=== PATIENT | male | born 1960 | race Caucasian/White ===

== ENCOUNTER 2020-01-11 14:31 | Outpatient (CLI) | payer OTHER, SELFPAY ==
--- NOTE | ~2020-01-11 | US_ITS ---
EXAMINATION: US abdomen complete, US soft tissue pelvic DATE: 01/11/2020 16:07 INDICATION: Abdominal pain. Abdominal hernia without obstruction or gangrene. TECHNIQUE: Multiple grayscale and Doppler ultrasound images of the abdomen and anterior wall of the r egion of concern at the pelvis were obtained. COMPARISON: None FINDINGS: Normal caliber abdominal aorta measuring 2.9 cm proximally and tapering to 2.0 cm the mid aorta and 1 .8 cm the distal aorta. The visualized proximal inferior vena cava is normal. The pancreatic head and body are normal in appearance. The pancreatic tail is not visualized. Liver has normal echogenicity and contour, with a smooth surface. No liver lesion identified. No intrahepatic biliary duct dilatio n suspected. Portal venous flow was seen in the hepatopetal, normal direction and has normal Doppler waveform. The gallbladder is normal in appearance. There is no cholelithiasis. The common bile duct measures 5 mm, which is normal. Sonographic Block sign was reported as negative by the natural resource officer. There is normal renal contour and echogenicity bilaterally. The right kidney measures 11.8 x 5.2 x 6. 8 cm and the left 12.2 x 6.0 x 5.6 cm. There are no focal renal lesions identified. There is no hyd ronephrosis. Mild nonspecific splenomegaly with spleen measuring 13.5 cm craniocaudal length which co uld be related to body habitus. No evident ventral hernia along the infraumbilical ventral wall of th e abdomen and pelvis. With Valsalva there is mild bulging of the fat near the entrances to the the bi lateral inguinal canals but without discrete herniation into the inguinal canals. IMPRESSION: 1. No evident ventral or inguinal hernias. 2. Mild splenomegaly which may be related to body habitus. Otherwise unremarkable abdominal ultrasoun d. Reviewed, dictated and finalized at location A. IMPRESSION: 1. No evident ventral or inguinal hernias. 2. Mild splenomegaly which may be related to body habitus. Otherwise unremarkab le abdominal ultrasound.
[2020-01-11 16:24] LABS: Basophils Percent Auto 0.5 % (0.2-1.2); Eosinophils Absolute Auto 0.3 K/mm3 (0-0.3); Eosinophils Percent Auto 4.9 % (0-4.4); Hematocrit 44.7 % (42.0-52.0); Hemoglobin 15.1 g/dL (14.0-18.0); Immature Granulocyte Absolute 0.01 K/mm3 (0.00-0.031); Immature Granulocyte Percent A 0.2 % (0-0.5); Lymphocytes Absolute Auto 2.01 K/mm3 (0.9-3.2); Lymphocytes Percent Auto 31.5 % (18.3-44.2); Mean Corpuscular HGB Conc 33.8 g/dl (32-36); Mean Corpuscular Hemoglobin 28.9 pg (26-34); Mean Corpuscular Volume 85.6 fl (80-100); Mean Platelet Volume 9.8 fl (7.4-10.4); Monocytes Absolute Auto 0.5 K/mm3 (0.1-0.6); Monocytes Percent Auto 7.4 % (2.6-8.5); Neutrophils Absolute Auto 3.6 K/mm3 (1.3-6.7); Neutrophils Percent Auto 55.5 % (45.5-73.1); Platelet Count Result 294 k/mm3 (150-375); Red Blood Count 5.22 M/mm3 (4.6-6.20); Red Cell Distribution Width 13.1 % (11.5-14.5); White Blood Count 6.4 K/mm3 (4.5-10.0)
[2020-01-11 16:36] LABS: Alanine Aminotransferase 29 U/L (4-50); Albumin Level 4.8 g/dL (3.5-5.1); Alkaline Phosphatase 40 U/L (38-126); Aspartate Amino Transferase 30 U/L (17-59); Bilirubin,Total 0.6 mg/dL (0.2-1.3); Blood Urea Nitrogen 18 mg/dL (9-20); Carbon Dioxide 27 mmol/L (22-30); Chloride 105 mmol/L (98-107); Cholesterol 165 mg/dL (0-200); Estimated Glomerular Filt Rate > 60; Glucose 84 mg/dL (75-110); HDL Direct 39 mg/dL; Potassium 4.3 mmol/L (3.4-5.0); Sodium 141 mmol/L (137-145); Triglycerides 173 mg/dL (<150)
[2020-01-11 16:49] LABS: LDL Cholesterol Direct 107 mg/dL
[2020-01-11 17:06] LABS: Prostate Specific Antigen 1.2 ng/mL (< OR = 4.0)
[2020-01-11 17:22] LABS: Free T4 Free Thyroxine 0.92 ng/mL (0.78-2.19)
== END 2020-01-11 14:32 | disposition home or self-care (01) ==
LOC: ANHIMG 14:33
PROVIDERS: PCP Family Medicine; Visit Provider Family Medicine
DX: Z00.00 Encounter for general adult medical examination without abnormal findings (principal); K46.9 Unspecified abdominal hernia without obstruction or gangrene; R10.9 Unspecified abdominal pain; Z79.899 Other long term (current) drug therapy; I10 Essential (primary) hypertension; E78.5 Hyperlipidemia, unspecified; Z86.010 Personal history of colon polyps; R16.1 Splenomegaly, not elsewhere classified
CPT/HCPCS: 36415; 76700; 76857; 80053; 80061; 84153; 84439; 84443; 85025; G0103

== ENCOUNTER → 2020-11-17 12:15 | Outpatient (CLI) | payer OTHER, SELFPAY ==
--- NOTE | ~2020-11-17 | XR_ITS ---
EXAMINATION: XR lumbar spine 2-3V DATE: 11/17/2020 12:34 INDICATION: Low back pain TECHNIQUE: Anteroposterior and lateral views of the lumbar spine, and cone-down lateral view of the l umbosacral junction were obtained. COMPARISON: None. FINDINGS: There are 3 mm of anterolisthesis of L4 on L5 and 2 mm of retrolisthesis of L5 on S1. There is severe loss of intervertebral disc space height at L5-S1. The vertebral body heights are maintain ed. There is no fracture. Small degenerative osteophytes project from the anterior endplates of multi ple vertebral bodies. The bowel gas pattern is normal. Punctate calcifications of the left upper quad rant likely reflect old granulomatous disease of the spleen. IMPRESSION: 1. Moderate lumbar spondylosis without acute findings. Reviewed, dictated and finalized at location B.
== END ==
PROVIDERS: PCP Family Medicine; Visit Provider Physician Assistant
DX: M54.5 Low back pain (principal); M47.816 Spondylosis without myelopathy or radiculopathy, lumbar region
CPT/HCPCS: 72100

== ENCOUNTER → 2021-01-26 13:12 | Outpatient (CLI) | payer OTHER, SELFPAY ==
--- NOTE | ~2021-01-26 | MR_ITS ---
EXAMINATION: MR lumbar spine wo con DATE: 01/26/2021 13:51 INDICATION: Lumbar radiculopathy. TECHNIQUE: Magnetic resonance imaging (MRI) of the lumbar spine was performed without intravenous con trast. Sequences included sagittal T2-weighted FSE, sagittal T2-weighted FS FSE, sagittal T1-weighted FSE, and axial T2-weighted FSE. COMPARISON: Lumbar spine radiographs 11/17/2020 FINDINGS: There is 3 mm retrolisthesis of L3 on L4, 3 mm anterolisthesis of L4 on L5, and 3 mm retrol isthesis of L5 on S1. Vertebral body heights are normal. There is mildly decreased disc height at L3- L4 and moderately decreased disc height at L5-S1. The distal spinal cord signal intensity is normal. The conus medullaris is at T12-L1. The following disc levels are specifically discussed: L1-L2: The disc does not extend beyond the endplate margin. There is mild bilateral facet joint osteo arthritis. There is no neural foraminal stenosis. There is no central canal stenosis. L2-L3: The disc does not extend beyond the endplate margin. There is severe bilateral facet joint ost eoarthritis. There is no neural foraminal stenosis. There is no central canal stenosis. L3-L4: The disc is bulging and has an annular fissure. There is severe bilateral facet joint osteoart hritis. There is moderate bilateral neural foraminal stenosis. There is mild central canal stenosis. L4-L5: The disc is bulging and has an annular fissure. There is severe bilateral facet joint osteoart hritis. There is moderate bilateral neural foraminal stenosis. There is moderate central canal stenos is. L5-S1: The disc is bulging and has an annular fissure. There is severe bilateral facet joint osteoart hritis. There is moderate bilateral neural foraminal stenosis. There is mild central canal stenosis. IMPRESSION: 1. Moderate lumbar spondylosis. Reviewed, dictated and finalized at location A.
== END ==
PROVIDERS: PCP Family Medicine; Visit Provider Physician Assistant
DX: M54.16 Radiculopathy, lumbar region (principal); M47.816 Spondylosis without myelopathy or radiculopathy, lumbar region
CPT/HCPCS: 72148

== ENCOUNTER → 2021-03-06 09:13 | Outpatient (CLI) | payer OTHER, SELFPAY ==
[2021-03-06 18:52] LABS: SARS-CoV-2 RNA PCR Negative
== END ==
PROVIDERS: PCP Family Medicine; Visit Provider Physician Assistant
DX: Z20.822 Contact with and (suspected) exposure to COVID-19 (principal)
CPT/HCPCS: C9803; U0003; U0005

== ENCOUNTER → 2021-03-06 09:51 | Outpatient (CLI) | payer OTHER, SELFPAY ==
--- NOTE | ~2021-03-06 | XR_ITS ---
EXAMINATION: XR chest 2V 03/06/2021 10:02 INDICATION: Chest pain PROCEDURE: 2 view chest COMPARISON: 10/27/2015 FINDINGS: The lungs are clear. The cardiomediastinal silhouette is within normal limits. There are no pleural effusions. There is no pneumothorax suspected. IMPRESSION: 1: NO ACUTE CARDIOPULMONARY DISEASE. Reviewed, dictated and finalized at location A.
== END ==
PROVIDERS: PCP Family Medicine; Visit Provider Physician Assistant
DX: R07.89 Other chest pain (principal)
CPT/HCPCS: 71046

== ENCOUNTER 2021-05-05 08:17 | Outpatient (CLI) | payer OTHER, SELFPAY ==
--- NOTE | 2021-05-05 08:39 | EST_ITS ---
Patient Info Name: Cornelius Payne Age: 60 years : 1960 Gender: Male Ht: 71 in Wt: 238 lbs BSA: 2.36 m2 Exam Date: 05/05/2021 9:13 AM Exam Location: [facility] Patient Status: Outpatient Admit Date: 05/05/2021 Staff Ordering Physician: Devonte Nguyen PA-C Roll Forger: Matt Block RDCS, RT Attending Provider: DR. MANRIQUEZ Referring Physician: Patrick MARTINEZ; Exam Type: CA stress echo Study Info Indications R07.9 - Chest pain, unspecified Treadmill exercise stress echocardiogram is performed. Summary 1. 1. Negative Lee exercise stress test for ischemic ST changes by ECG criteria. 2. 2. Good functional capacity, achieving 10 METS of workload. 3. 3. Baseline hypertension with hypertensive response to exercise. 4. 4. Appropriate HR response to exercise. 5. 5. Appropriate HR recovery at 1 minute post exercise. 6. 6. Negative stress echocardiogram for ischemia by wall motion analysis. 7. 7. Patient informed of the above results. Stress Echo Findings Left Ventricle Appropriate increase in LV endocardial thickening with systole. Appropriate augmentation of contractility with systole. No wall motion abnormality. Left Ventricle Normal LV systolic function, no wall motion abnormality. Protocol: Lee Stress ECG Details Stage: REST Duration (min): 1 min : 8 sec Speed (mph): 0.0 Grade (%): 0 HR (bpm): 72 SBP (mmHg): 147 DBP (mmHg): 89 METS: --- Stage: REST Duration (min): 21 min : 44 sec Speed (mph): 0.0 Grade (%): 0 HR (bpm): 71 SBP (mmHg): 147 DBP (mmHg): 89 METS: --- Stage: STAGE 1 Duration (min): 1 min : 0 sec Speed (mph): 1.7 Grade (%): 10 HR (bpm): 89 SBP (mmHg): 147 DBP (mmHg): 89 METS: --- Stage: STAGE 1 Duration (min): 2 min : 0 sec Speed (mph): 1.7 Grade (%): 10 HR (bpm): 100 SBP (mmHg): 147 DBP (mmHg): 89 METS: --- Stage: STAGE 1 Duration (min): 3 min : 0 sec Speed (mph): 1.7 Grade (%): 10 HR (bpm): 102 SBP (mmHg): 176 DBP (mmHg): 74 METS: --- Stage: STAGE 2 Duration (min): 1 min : 0 sec Speed (mph): 2.5 Grade (%): 12 HR (bpm): 111 SBP (mmHg): 176 DBP (mmHg): 74 METS: --- Stage: STAGE 2 Duration (min): 2 min : 0 sec Speed (mph): 2.5 Grade (%): 12 HR (bpm): 115 SBP (mmHg): 180 DBP (mmHg): 78 METS: --- Stage: STAGE 2 Duration (min): 3 min : 0 sec Speed (mph): 2.5 Grade (%): 12 HR (bpm): 114 SBP (mmHg): 180 DBP (mmHg): 78 METS: --- Stage: STAGE 3 Duration (min): 1 min : 0 sec Speed (mph): 3.4 Grade (%): 14 HR (bpm): 128 SBP (mmHg): 171 DBP (mmHg): 85 METS: --- Stage: STAGE 3 Duration (min): 2 min : 0 sec Speed (mph): 3.4 Grade (%): 14 HR (bpm): 136 SBP (mmHg): 171 DBP (mmHg): 85 METS: --- Stage: STAGE 3 Duration (min): 3 min : 0 sec Speed (mph): 3.4 Grade (%): 14 HR (bpm): 130 SBP (m
== END 2021-05-05 08:18 | disposition home or self-care (01) ==
PROVIDERS: PCP Family Medicine; Visit Provider Physician Assistant
DX: R07.89 Other chest pain (principal)
CPT/HCPCS: 93351

== ENCOUNTER → 2022-05-11 10:56 | Outpatient (CLI) | payer OTHER, SELFPAY ==
--- NOTE | ~2022-05-11 | XR_ITS ---
XR knee RT min 4V 05/11/2022 11:18 INDICATION: Right knee pain PROCEDURE: 5 views right knee COMPARISON: No prior studies for comparison. FINDINGS: Fracture, dislocation or subluxation is not identified. No joint effusion. The soft tissues appear within normal limits. No foreign bodies are identified. IMPRESSION: 1: No significant bone or joint abnormality.. Reviewed, dictated and finalized at location A.
== END ==
PROVIDERS: PCP Emergency Medicine; Visit Provider Emergency Medicine
DX: M25.561 Pain in right knee (principal)
CPT/HCPCS: 73564

== ENCOUNTER 2022-05-20 07:39 | Outpatient (CLI) | payer OTHER, SELFPAY ==
--- NOTE | 2022-06-07 10:02 | WPDSLEEPSTUD ---
Sleep Study Date of Study: 05/20/22 Ordering Provider: Mike Early MD Interpreting Physician: Conchita Mcleod MD Sleep Study Type: Split Polysomnogram Height: 1.8 m Weight: 115.666 kg Body Mass Index: 35.5 Neck Circumference (inches): 17.5 [place]: 8 Reason for Sleep Study Known obstructive sleep apnea, needs re-evaluation, has been treated for over 10 years. * [facility] Mild obstructive sleep apnea, AHI was 10 with desaturations and heavy snoring with severe myoclonus. He developed treatment emergent central apneas during the titration. His optimal pressure on that study was 8 cm. 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 He snores loudly, has a history of sleep apnea and restless legs syndrome. He has been snoring recently even using CPAP. He has snored since he was a child. In regards to sleep apnea his last sleep study was over 10 years ago. He has been using the same CPAP machine. His restless legs syndrome began around the age of 22 and is increased in frequency and intensity over the years. Sometimes, these symptoms occur during the day. If he does not use CPAP he awakens feeling short of breath frequently. He rarely awakens at night with heartburn, belching or coughing. His snoring is always loud without CPAP but with that he still snores some. He frequently has trouble sleeping with a cold. He occasionally wakes up gasping for breath without CPAP. He constantly has breathing problems at night if he does not uses CPAP. He rarely sweats excessively at night. He does not notice his heart pounding or beating irregularly at night. He frequently falls asleep during the day. He does not fall asleep involuntarily or while driving. He does not have loss of muscle tone with strong emotion. He does not have daytime difficulties due to excessive sleepiness PE. He does not feel paralyzed on waking or falling asleep. He occasionally has vivid dreamlike scenes on waking or falling asleep. He rarely has nightmares. He occasionally remembers his dreams. He occasionally has racing thoughts. He constantly feels sad or depressed. He occasionally has anxiety. He does not have muscular tension. He constantly notices parts of his body jerking, he constantly kicks at night he constantly has crawling aching feelings in his legs. He does not have leg pain at night. He occasionally has morning jaw pain. He does not grind his teeth during sleep. He occasionally is bothered by pain during the day , occasionally awakened by pain at night. He frequently wakes up feeling stiff in the morning with sore achy muscles and pain in the neck and spine. Normal bedtime is 10:00 p.m. falling asleep within 20-30 minutes and less his RLS is worsening. He typically wakes 1-2 times at night to urinate and is able to return to sleep and 15 minutes. He wakes the morning at 6:00 a.m.. He usually gets 7 hours of sleep at night. He is currently recovering from back surgery so he is sleeping longer. He sometimes takes naps in the afternoon or evening. A short nap is not refreshing. He is drowsy in the morning for an hour or longer. He feels better in the afternoon compared to other times of day. Habits: Quit tobacco over 12 years ago. Caffeine for servings a day. No alcohol or recreational drugs. [facility] Past Medical History Medical History Cleft lip Surgical History Surgical History H/O colonoscopy (~06/2019) Hx of tonsillectomy Family History Family History Mother Family history of glaucoma Depression Family history of Parkinson's disease Father Hypertension Malignant neoplasm of prostate Family history of cardiovascular
[2022-06-07 10:13] VITALS: BMI 35.5
== END 2022-05-21 06:44 | disposition home or self-care (01) ==
PROVIDERS: PCP Emergency Medicine; Visit Provider Emergency Medicine
DX: G47.33 Obstructive sleep apnea (adult) (pediatric) (principal); G25.81 Restless legs syndrome; Z68.35 Body mass index [BMI] 35.0-35.9, adult
CPT/HCPCS: 95811

== ENCOUNTER 2022-07-07 01:02 | Day surgery (SDC) | payer OTHER, SELFPAY ==
[2022-06-21 14:11] VITALS: BMI 34.9
--- NOTE | 2022-07-06 09:29 | PM.HPGS ---
History of Present Illness History of Present Illness Consent: Risks, benefits, and alternatives have been discussed and questions answered. Patient agrees to proceed with procedure. Chief complaint: hx of colon polyps Narrative: Cornelius Payne is a 61 year old male referred for colon cancer screening. He has a history of polyps removed in 2012 and again 3 years ago he had removal of multiple polyps, 3 of which were tubular adenomas. Review of Systems Review of Systems: All systems reviewed & are unremarkable except as noted in HPI and below PMFSH Past Medical History Medical History Anxiety Anxiety disorder, unspecified Cleft lip Essential (primary) hypertension Major depressive disorder, single episode, unspecified Mixed hyperlipidemia Obesity (BMI 30-39.9) Obstructive sleep apnea (adult) (pediatric) Surgical History Surgical History H/O colonoscopy (~06/2019) Hx of tonsillectomy Family History Family History Mother Family history of glaucoma Depression Family history of Parkinson's disease Father Hypertension Malignant neoplasm of prostate Family history of cardiovascular disease Other Cerebrovascular accident Diabetes mellitus Social History Social History Smoking status: Former smoker Tobacco type: cigarettes Alcohol intake: never Substance use type: does not use Living arrangements: with family Spiritual care concerns: No Meds Home Medications and Allergies Home Medications Medication Instructions Recorded Confirmed Type travoprost 0.004 % eye drops 1 drop ophthalmic (eye) QPM 12/28/19 07/07/22 History syringe with needle, safety 3 mL #100 ea 12/24/20 07/07/22 Rx 23 gauge x 1 (BD Integra Syringe) alprazolam 0.5 mg tablet 0.5 mg PO .QHS PRN sleep #30 tabs 06/15/21 07/07/22 Rx cholecalciferol (vitamin D3) 1,250 1,250 mcg PO WEEKLY #14 caps 12/09/21 07/07/22 Rx mcg (50,000 unit) capsule vilazodone 40 mg tablet (Viibryd) 40 mg PO DAILY #90 tabs 01/26/22 07/07/22 Rx testosterone cypionate 200 mg/mL 200 mg IM .EVERY 2 WEEKS #10 mL 02/01/22 07/07/22 Rx intramuscular oil (Depo-Testosterone) trazodone 50 mg tablet See Rx Instructions .Route 02/25/22 07/07/22 Rx .COMPLEX #90 tabs bupropion HCl 150 mg 24 hr tablet, 450 mg PO QAM #270 tabs 05/07/22 07/07/22 Rx extended release (Wellbutrin XL) metformin 500 mg tablet,extended See Rx Instructions .Route 05/07/22 07/07/22 Rx release 24 hr .COMPLEX #360 tabs atorvastatin 40 mg tablet See Rx Instructions .Route 05/25/22 07/07/22 Rx .COMPLEX #90 tabs fenofibrate 160 mg tablet See Rx Instructions .Route 05/25/22 07/07/22 Rx .COMPLEX #90 tabs tramadol 50 mg tablet 50 mg PO .q 4-6 PRN pain #60 tabs 06/28/22 07/07/22 Rx Allergies Allergy/AdvReac Type Severity Reaction Status Date / Time No Known Allergies Allergy Verified 07/07/22 07:51 Exam Resp: Auscultation: clear to auscultation bilaterally Cardio: Rate: regular rate Rhythm: regular rhythm GI: GI Palp: Yes Soft to palpation and No Tenderness to palpation present (GI) Assessment and Plan Assessment and plan (1) Colon cancer screening: Code(s): Z12.11 - Encounter for screening for malignant neoplasm of colon Status: Acute Assessment and Plan: Colonoscopy with possible biopsy or polypectomy or cautery or injection of substances.
[2022-07-07 07:52] LABS: Glucose Point of Care 133 mg/dl (65-105)
[2022-07-07 07:53] VITALS: BP 149/91; PULSE 92; RESP 18; TEMP 36.6; O2SAT 97
[2022-07-07] MEDS: LACTATED RINGERS 1,000 ML 150 ML IV CONT (07:57)
--- NOTE | 2022-07-07 07:59 | WPDANESEPPF ---
Anes - Initial Pre Proc Eval Procedure: Operation Date: 07/07/22 09:00 Proposed Procedures p Screening Colonoscopy - Quique Pond MD Date/Time: 07/07/22 07:59 Surgeon: Quique Pond MD Pre Op Diagnosis: hx of colon polyps Patient Data Age: 61 Gender: M Height: 1.8 m Weight: 112.8 kg Last Vital Signs Temp 36.6 C 07/07/22 07:53 Pulse 92 07/07/22 07:53 Resp 18 07/07/22 07:53 BP 149/91 H 07/07/22 07:53 Pulse Ox 97 07/07/22 07:53 O2 Del Method Room Air 07/07/22 07:53 Allergies Allergy/AdvReac Type Severity Reaction Status Date / Time No Known Allergies Allergy Verified 07/07/22 07:51 Home Medications Medication Instructions Recorded Confirmed Type travoprost 0.004 % eye drops 1 drop ophthalmic (eye) QPM 12/28/19 07/07/22 History syringe with needle, safety 3 mL #100 ea 12/24/20 07/07/22 Rx 23 gauge x 1 (BD Integra Syringe) alprazolam 0.5 mg tablet 0.5 mg PO .QHS PRN sleep #30 tabs 06/15/21 07/07/22 Rx cholecalciferol (vitamin D3) 1,250 1,250 mcg PO WEEKLY #14 caps 12/09/21 07/07/22 Rx mcg (50,000 unit) capsule vilazodone 40 mg tablet (Viibryd) 40 mg PO DAILY #90 tabs 01/26/22 07/07/22 Rx testosterone cypionate 200 mg/mL 200 mg IM .EVERY 2 WEEKS #10 mL 02/01/22 07/07/22 Rx intramuscular oil (Depo-Testosterone) trazodone 50 mg tablet See Rx Instructions .Route 02/25/22 07/07/22 Rx .COMPLEX #90 tabs bupropion HCl 150 mg 24 hr tablet, 450 mg PO QAM #270 tabs 05/07/22 07/07/22 Rx extended release (Wellbutrin XL) metformin 500 mg tablet,extended See Rx Instructions .Route 05/07/22 07/07/22 Rx release 24 hr .COMPLEX #360 tabs atorvastatin 40 mg tablet See Rx Instructions .Route 05/25/22 07/07/22 Rx .COMPLEX #90 tabs fenofibrate 160 mg tablet See Rx Instructions .Route 05/25/22 07/07/22 Rx .COMPLEX #90 tabs tramadol 50 mg tablet 50 mg PO .q 4-6 PRN pain #60 tabs 06/28/22 07/07/22 Rx Laboratory Tests 07/07/22 07:49 POC Capillary Glucose 133 mg/dl H mg/dl (65-105) Patient hx anesthesia problems: none Family hx anesthesia problems: none Results Review: All pre-operative results and documents have been reviewed as part of the pre-operative evaluation. [facility] Past Medical History Medical History (Updated 07/07/22 @ 08:06 by Fredreick Ramon MD) Anxiety Anxiety disorder, unspecified Cleft lip Essential (primary) hypertension Major depressive disorder, single episode, unspecified Mixed hyperlipidemia Obesity (BMI 30-39.9) Obstructive sleep apnea (adult) (pediatric) Surgical History Surgical History H/O colonoscopy (~06/2019) Hx of tonsillectomy Family History Family History Mother Family history of glaucoma Depression Family history of Parkinson's disease Father Hypertension Malignant neoplasm of prostate Family history of cardiovascular disease Other Cerebrovascular accident Diabetes mellitus Social History Social History Smoking status: Former smoker Tobacco type: cigarettes Alcohol intake: never Substance use type: does not use Living arrangements: with family Spiritual care concerns: No Anes - Eval Final PreProcedure Day of Procedure 07/07/22 07:59 Patient weight: obese Heart: regular rate and rhythm Lungs: clear to auscultation and normal air movement Airway: Mallampati scale class II Neurological: alert and oriented Last oral intake: >/= 8 hours ASA classification: III Emergent: no Anesthetic plan: proceed Anesthesia type and monitoring: general GIVS Results Review: All pre-operative results and documents have been reviewed as part of the pre-operative evaluation. Informed Consent: The patient's anesthetic plan and its attendant risks and benefits were discussed with the patient/family/POA. Questions were
[2022-07-07] MEDS: SIMETHICONE ORAL SUSPENSION 20 MG/0.3 ML 30 ML BOTTLE 0.6 ML IRRIGATION (09:25)
[2022-07-07 09:29] VITALS: BP 113/78; PULSE 91; RESP 22; O2SAT 96
[2022-07-07 09:39] VITALS: BP 129/90; PULSE 88; RESP 22; O2SAT 97
[2022-07-07 09:49] VITALS: BP 134/88; PULSE 85; RESP 23; O2SAT 98
== END 2022-07-07 09:56 | disposition home or self-care (01) ==
PROVIDERS: PCP Emergency Medicine; Visit Provider Internal Medicine Gastroenterology
PROC: 0DJD8ZZ Inspection of Lower Intestinal Tract, Via Natural or Artificial Opening Endoscopic (ICD-10-PCS; CPT 45378; principal; 2022-07-07 09:00)
DX: Z12.11 Encounter for screening for malignant neoplasm of colon (principal); K57.30 Diverticulosis of large intestine without perforation or abscess without bleeding; D12.2 Benign neoplasm of ascending colon; I10 Essential (primary) hypertension; E78.2 Mixed hyperlipidemia; F32.A Depression, unspecified; G47.33 Obstructive sleep apnea (adult) (pediatric); F41.9 Anxiety disorder, unspecified; E66.9 Obesity, unspecified; Z68.34 Body mass index [BMI] 34.0-34.9, adult; Z87.891 Personal history of nicotine dependence; Z79.84 Long term (current) use of oral hypoglycemic drugs; Z79.890 Hormone replacement therapy
CPT/HCPCS: 45385; 82948; 88305; J2704; J7120

== ENCOUNTER 2023-07-08 10:15 | Emergency (ER) | payer OTHER, SELFPAY ==
--- NOTE | ~2023-07-08 | CT_ITS ---
EXAMINATION: CT abdomen pelvis w con DATE: 07/08/2023 13:08 INDICATION: Abdominal pain. TECHNIQUE: Computed tomography (CT) of the abdomen and pelvis was performed with 100 mL Omnipaque 350 intravenous contrast. Automated exposure control and iterative reconstruction technique were employe d. The dose-length product was 1224.22 mGy-cm. COMPARISON: None. FINDINGS: The visualized portions of the lung bases demonstrate mild atelectasis. Calcified right maura g nodules are consistent with old granulomatous disease. No pleural effusion. The heart size is seble l. No pericardial effusion. There is a 4 mm cyst in the liver. Calcifications in the spleen are consi stent with old granulomatous disease. There is cystic thickening of the wall of the fundus of the gal lbladder, consistent with adenomyomatosis. The pancreas and right adrenal gland are normal. There is a 5 mm mass of fat in left adrenal gland, consistent with a myelolipoma. There is a 6 mm cyst in righ t kidney. Left kidney is normal. There are no dilated loops of bowel. There are scattered diverticula in the colon. There is fat stranding adjacent to a diverticulum of sigmoid colon, consistent with di verticulitis. The appendix is normal. There are no pathologically enlarged lymph nodes. There is no f ree intraperitoneal fluid. The prostate is mildly enlarged. There are changes of anterior fusion proc edure at L5-S1 and posterior fusion procedure from L4 to S1. There is moderate lumbar spondylosis. IMPRESSION: 1. Sigmoid diverticulitis. No perforation or abscess. Reviewed, dictated and finalized at location A. IN REPAIRER
[2023-07-08 10:36] VITALS: BP 161/90; PULSE 78; RESP 16; TEMP 36.6; O2SAT 98
--- NOTE | 2023-07-08 12:33 | ECG_ITS ---
Measurements Intervals [place] Rate: 62 P: 57 [place]: 165 QRS: 30 QRSD: 103 T: 51 QT: 393 QTc: 401 Interpretive Statements SINUS RHYTHM NORMAL ELECTROCARDIOGRAM NO PREVIOUS ECG AVAILABLE FOR COMPARISON Electronically Signed On 07-08-2023 13:41:36 CONTRACT PREPARER by Mauri Akhtar M.D.
--- NOTE | 2023-07-08 12:34 | ED.ABDPAIN ---
HPI - Abdominal Pain General Chief Complaint: Abdominal Pain Stated Complaint: abdominal pain Time Seen by Provider: 07/08/23 12:18 Source: patient Mode of arrival: ambulatory Limitations: no limitations History of Present Illness HPI narrative: This is a 62-year-old male that presents to the emergency department for abdominal pain. Ongoing over the last week. He has not been taking anything for his symptoms. Denies any associated symptoms. Reports his pain is in epigastric region and the left lower abdomen. Denies fevers, vomiting, diarrhea, dysuria, or hematuria. Related Data Home Medications Medication Instructions Recorded Confirmed travoprost 0.004 % eye drops 1 drop ophthalmic (eye) QPM 12/28/19 01/28/23 Allergies Allergy/AdvReac Type Severity Reaction Status Date / Time No Known Allergies Allergy Verified 07/08/23 12:31 Review of Systems Review of Systems: CONSTITUTIONAL: Denies fever GASTROINTESTINAL: Reports abdominal pain. Denies nausea, vomiting, or diarrhea. GENITOURINARY: Denies dysuria or hematuria. All systems reviewed & are unremarkable except as noted in HPI and below PMFSH Past Medical History Medical History (Updated 07/08/23 @ 13:46 by Bethany Raymond PA-C) Anxiety Anxiety disorder, unspecified Cleft lip Essential (primary) hypertension Major depressive disorder, single episode, unspecified Mixed hyperlipidemia Obesity (BMI 30-39.9) Obstructive sleep apnea (adult) (pediatric) Surgical History Surgical History H/O colonoscopy (~06/2019) Hx of tonsillectomy Family History Family History Mother Family history of glaucoma Depression Family history of Parkinson's disease Father Hypertension Malignant neoplasm of prostate Family history of cardiovascular disease Other Cerebrovascular accident Diabetes mellitus Social History Social History Smoking status: Former smoker Tobacco type: cigarettes Alcohol intake: never Substance use type: does not use Lack of Transportation: No Lack of Food: Never True Current Housing: I Have Housing Concerned About Future Housing: No Difficulty Paying Gas/Electric Bills: No Difficulty Paying for Meds: No Currently Unemployed: No Education: Master's Degree or Higher Difficulty w/ Childcare or Family Care: No Living arrangements: with family Spiritual care concerns: No Exam Narrative: GENERAL: Well-appearing, well-nourished, and in no acute distress. HEAD: Normocephalic, atraumatic. EYES: EOMI. CHEST: Clear to auscultation. No respiratory distress. No wheezes rales or rhonchi HEART: Regular rate and rhythm. No murmur heard. Normal peripheral pulses. ABDOMEN: Soft, nondistended, normal active bowel sounds. Tender to palpation through the left side of the abdomen, without guarding EXTREMITIES: Normal range of motion. No edema. SKIN: Warm, dry, no rash. NEURO: No focal deficits. Alert and oriented x3. PSYCH: Normal mood and affect Course Course Emergency Course: Patient updated on workup and agrees with plan of care Vital Signs Vital signs: Vital Signs Temperature 97.9 F 07/08/23 10:36 Pulse Rate 78 07/08/23 10:36 Respiratory Rate 16 07/08/23 10:36 Blood Pressure 161/90 H 07/08/23 10:36 Pulse Oximetry 98 07/08/23 10:36 Temperature 97.9 F 07/08/23 10:36 Pulse Rate 78 07/08/23 10:36 Respiratory Rate 16 07/08/23 10:36 Blood Pressure 161/90 H 07/08/23 10:36 Pulse Oximetry 98 07/08/23 10:36 MDM - Abdominal Pain MDM Narrative Medical decision making narrative: Patient presents to the ER for abdominal pain ongoing over the last week. He is afebrile and nontoxic appearing. CBC without leukocytosis. Metabolic panel without concerning findings. CT abdomen pelvis shows sigmoid di
[2023-07-08 12:48] LABS: Basophils Percent Auto 0.7 % (0.2-1.2); Eosinophils Absolute Auto 0.3 K/mm3 (0-0.3); Eosinophils Percent Auto 4.7 % (0-4.4); Hematocrit 45.9 % (42.0-52.0); Hemoglobin 14.4 g/dL (14.0-18.0); Immature Granulocyte Absolute 0.03 K/mm3 (0.00-0.031); Immature Granulocyte Percent A 0.5 % (0-0.5); Lymphocytes Absolute Auto 1.77 K/mm3 (0.9-3.2); Lymphocytes Percent Auto 32.2 % (18.3-44.2); Mean Corpuscular HGB Conc 31.4 g/dl (32-36); Mean Corpuscular Hemoglobin 27.7 pg (26-34); Mean Corpuscular Volume 88.3 fl (80-100); Mean Platelet Volume 9.8 fl (7.4-10.4); Monocytes Absolute Auto 0.5 K/mm3 (0.1-0.6); Monocytes Percent Auto 8.9 % (2.6-8.5); Neutrophils Absolute Auto 2.9 K/mm3 (1.3-6.7); Platelet Count Result 288 k/mm3 (150-375); Red Cell Distribution Width 13.7 % (11.5-14.5); White Blood Count 5.5 K/mm3 (4.5-10.0)
[2023-07-08 12:52] LABS: Appearance Urine Clear (Clear); Bilirubin Urine Negative (Negative); Blood Urine Negative (Negative); Color Urine Yellow (Yellow); Glucose Urine UA Negative (Negative); Ketones Urine Negative (Negative); Leukocyte Esterase Ur Negative LEU/UL (Negative); Nitrate Urine Negative (Negative); Protein Urine Negative (Negative); Specific Grav Ur 1.026 (1.001-1.035); Urobilinogen Urine 0.2 mg/dL (<2.0); pH Urine 5.5 (5.0-9.0)
[2023-07-08 12:54] LABS: Add Urine Microscopic? NO
[2023-07-08 12:56] LABS: Alanine Aminotransferase 24 U/L (6-50); Albumin Level 4.8 g/dL (3.5-5.1); Alkaline Phosphatase 58 U/L (38-126); Anion Gap 12 mmol/L (8-16); Aspartate Amino Transferase 27 U/L (17-59); Bilirubin,Total 0.5 mg/dL (0.2-1.3); Blood Urea Nitrogen 18 mg/dL (9-20); Calcium 9.7 mg/dL (8.4-10.2); Carbon Dioxide 25 mmol/L (22-30); Chloride 106 mmol/L (98-107); Estimated Glomerular Filt Rate > 60; Glucose 99 mg/dL (65-110); Lipase 172 U/L (23-300); Potassium 4.1 mmol/L (3.4-5.0); Sodium 143 mmol/L (137-145)
[2023-07-08] MEDS: PANTOPRAZOLE SODIUM IV 40 MG VIAL IV PUSH (13:16)
== END 2023-07-08 14:32 | disposition home or self-care (01) ==
PROVIDERS: Emergency Provider Physician Assistant; PCP Nurse Practitioner Family
DX: K57.32 Diverticulitis of large intestine without perforation or abscess without bleeding (principal); I10 Essential (primary) hypertension; E78.2 Mixed hyperlipidemia; G47.33 Obstructive sleep apnea (adult) (pediatric); E66.9 Obesity, unspecified; F41.9 Anxiety disorder, unspecified; F32.9 Major depressive disorder, single episode, unspecified; Z87.891 Personal history of nicotine dependence; Z79.84 Long term (current) use of oral hypoglycemic drugs
CPT/HCPCS: 36415; 74177; 80053; 81003; 83690; 85025; 93005; 96374; 99284; C9113; Q9967

== ENCOUNTER 2024-01-19 11:57 | Emergency (ER) | payer OTHER, SELFPAY ==
--- NOTE | ~2024-01-19 | XR_ITS ---
Clinical Indication: Chest pain PA and lateral views of the chest: Comparison: 03/06/2021 Findings: The lungs are clear, without evidence of focal consolidation or pleural effusion. Cardiome diastinal silhouette is within normal limits. Bones and soft tissues are unremarkable. Impression: Normal chest. Reviewed, dictated and finalized at location . Impression: Normal chest.
[2024-01-19 11:58] VITALS: BP 194/82; PULSE 72; RESP 18; TEMP 36.6; O2SAT 98
--- NOTE | 2024-01-19 11:59 | ECG_ITS ---
Test Date: 2024-01-19 12:05:29 Measurements Intervals [place] Rate: 70 P: 47 VT: 160 QRS: 14 QRSD: 98 T: 40 QT: 361 QTc: 389 Interpretive Statements SINUS RHYTHM No previous ECG available for comparison Electronically Signed On 01-19-2024 12:47:38 CDT by Stella Abad M.D.
[2024-01-19 12:10] LABS: Basophils Percent Auto 0.8 % (0.2-1.2); Eosinophils Absolute Auto 0.2 K/mm3 (0-0.3); Eosinophils Percent Auto 3.8 % (0-4.4); Hematocrit 45.3 % (42.0-52.0); Immature Granulocyte Absolute 0.02 K/mm3 (0.00-0.031); Immature Granulocyte Percent A 0.4 % (0-0.5); Lymphocytes Absolute Auto 1.13 K/mm3 (0.9-3.2); Lymphocytes Percent Auto 23.7 % (18.3-44.2); Mean Corpuscular HGB Conc 33.1 g/dl (32-36); Mean Corpuscular Hemoglobin 28.1 pg (26-34); Mean Corpuscular Volume 84.8 fl (80-100); Mean Platelet Volume 9.9 fl (7.4-10.4); Monocytes Absolute Auto 0.4 K/mm3 (0.1-0.6); Monocytes Percent Auto 7.4 % (2.6-8.5); Neutrophils Percent Auto 63.9 % (45.5-73.1); Platelet Count Result 246 k/mm3 (150-375); Red Blood Count 5.34 M/mm3 (4.6-6.20); Red Cell Distribution Width 14.9 % (11.5-14.5); White Blood Count 4.8 K/mm3 (4.5-10.0)
[2024-01-19 12:21] LABS: INR 0.9; Prothrombin Time 12.5 Seconds (11.1-14.7)
[2024-01-19 12:22] LABS: Partial Thromboplastin Time 28.4 Seconds (22.3-36.8)
[2024-01-19 12:27] LABS: Alanine Aminotransferase 34 U/L (6-50); Albumin Level 4.8 g/dL (3.5-5.1); Alkaline Phosphatase 55 U/L (38-126); Anion Gap 10 mmol/L (4-12); Aspartate Amino Transferase 31 U/L (17-59); Bilirubin,Total 0.7 mg/dL (0.2-1.3); Blood Urea Nitrogen 20 mg/dL (9-20); Carbon Dioxide 23 mmol/L (22-30); Chloride 108 mmol/L (98-107); Estimated CRCL calculation 65 ml/min; Estimated Glomerular Filt Rate > 60; Glucose 147 mg/dL (65-110); Lipase 330 U/L (23-300); Potassium 4.5 mmol/L (3.4-5.0); Sodium 141 mmol/L (137-145)
[2024-01-19 12:37] LABS: Troponin I < 0.012 ng/mL (0.000-0.034)
[2024-01-19 12:44] VITALS: PULSE 69
[2024-01-19 12:45] VITALS: O2SAT 97
--- NOTE | 2024-01-19 13:31 | ED.CHESTPAIN ---
HPI - Chest Pain General Chief Complaint: Chest Pain Stated Complaint: chest discomort Time Seen by Provider: 01/19/24 12:45 History of Present Illness HPI narrative: Patient is a 63-year-old male with history of hyperlipidemia, prediabetes here with chest pain. Patient states that over the last week he has had intermittent chest pain however today it seemed to be worse and associated with some lightheadedness which prompted him to come into the emergency department. He notes that it feels like a pressure / heaviness sensation over mid chest and left side of his chest. It does not radiate. He denies any associated nausea, vomiting, shortness of breath. He does note that he had some associated diaphoresis earlier today. He states that both the chest pain and lightheadedness are significantly improved at this time. He had his blood pressure checked at his job when his pain was severe and it was elevated, no prior history of hypertension. 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 His last stress test was approximately 2 years ago before back surgery. No prior history of cardiac catheterization. He does note a prior cardiac history in his father. He does not follow with a weathercaster. No cough, congestion, fever, chills. Related Data Home Medications Medication Instructions Recorded Confirmed travoprost 0.004 % eye drops 1 drop ophthalmic (eye) QPM 12/28/19 07/12/23 Allergies Allergy/AdvReac Type Severity Reaction Status Date / Time No Known Allergies Allergy Verified 07/12/23 14:59 Review of Systems Review of Systems: All systems reviewed & are unremarkable except as noted in HPI and below PMFSH Past Medical History Medical History (Updated 01/19/24 @ 16:50 by Angella Brizuela MD) Anxiety Anxiety disorder, unspecified Cleft lip Essential (primary) hypertension Major depressive disorder, single episode, unspecified Mixed hyperlipidemia Obesity (BMI 30-39.9) Obstructive sleep apnea (adult) (pediatric) Surgical History Surgical History (Updated 07/12/23 @ 15:05 by Henry Prather) H/O colonoscopy (~06/2019) History of eye surgery History of hernia surgery Hx of tonsillectomy S/P lumbar fusion Family History Family History Mother Family history of glaucoma Depression Family history of Parkinson's disease Father Hypertension Malignant neoplasm of prostate Family history of cardiovascular disease Other Cerebrovascular accident Diabetes mellitus Social History Social History Smoking status: Former smoker Tobacco type: cigarettes Alcohol intake: never Substance use type: does not use Lack of Transportation: No Lack of Food: Never True Current Housing: I Have Housing Concerned About Future Housing: No Difficulty Paying Gas/Electric Bills: No Difficulty Paying for Meds: No Currently Unemployed: No Education: Master's Degree or Higher Difficulty w/ Childcare or Family Care: No Living arrangements: with family Spiritual care concerns: No Exam Narrative: GENERAL: Well-appearing, well-nourished, and in no acute distress. HEAD: Normocephalic, atraumatic. EYES: PERRLA and EOMI. ENT: Nares clear. Mucous membranes moist. NECK: Supple. CHEST: Clear to auscultation. No respiratory distress. HEART: Regular rate and rhythm. Normal peripheral pulses. ABDOMEN: Soft, nontender, nondistended. EXTREMITIES: Normal range of motion. No edema. SKIN: Warm, dry, no rash. NEURO: No focal deficits. Alert and oriented x3. PSYCH: Normal mood and affect. Course Course Emergency Course: Chart review performed, patient here for intermittent chest tightness that began today. No cardiac history. Triage vitals show hypertension, otherwise within normal limit
[2024-01-19 13:36] VITALS: BP 170/93; PULSE 67; RESP 19; O2SAT 97
[2024-01-19 15:26] VITALS: BP 167/98; PULSE 70; RESP 18; O2SAT 97
[2024-01-19] MEDS: ACETAMINOPHEN 500 MG TABLET 1000 MG PO (15:30)
[2024-01-19 15:35] LABS: Troponin I < 0.012 ng/mL (0.000-0.034)
[2024-01-19 16:58] VITALS: BP 162/96; PULSE 73; RESP 20; O2SAT 97
== END 2024-01-19 17:00 | disposition home or self-care (01) ==
PROVIDERS: Family Medicine; Emergency Provider Student in an Organized Health Care Education/Training Program; PCP Nurse Practitioner Family
DX: R07.89 Other chest pain (principal); E78.5 Hyperlipidemia, unspecified; R73.03 Prediabetes; I10 Essential (primary) hypertension; F41.8 Other specified anxiety disorders; Z87.891 Personal history of nicotine dependence
CPT/HCPCS: 36415; 71046; 80053; 83690; 84484; 85025; 85610; 85730; 93005; 99284; A9270

== ENCOUNTER 2024-03-07 09:41 | Outpatient (CLI) | payer OTHER, SELFPAY ==
--- NOTE | ~2024-03-07 | NM_ITS ---
EXAMINATION: NM stress w perf spect multi DATE: 03/07/2024 11:35 INDICATION: Chest pain. TECHNIQUE: Rest images were obtained following intravenous administration of 9 mCi Tc99m tetrofosmin (Myoview). The patient performed an exercise activity. At peak exercise, 29 mCi Tc99m tetrofosmin (My oview) was administered intravenously, and stress images were obtained. Data was reconstructed into s hort axis and horizontal and vertical long axis SPECT images. Gated SPECT images were also obtained. COMPARISON: CT abdomen and pelvis 07/08/2023 FINDINGS: There is no definite reversible or fixed perfusion abnormality to suggest ischemia or infar ction. There is no segmental wall motion abnormality. Left ventricular ejection fraction measures 5 3%. IMPRESSION: 1. No definite ischemia or infarct. 2. Normal left ventricular ejection fraction measuring 53%. Reviewed, dictated and finalized at location A.
--- NOTE | 2024-03-07 09:58 | EST_ITS ---
Patient Info Name: Cornelius Payne Age: 63 years : 1960 Gender: Male Ht: 71 in Wt: 244 lbs BSA: 2.39 m2 HR: 71 bpm BP: 146 / 89 mmHg Heart Rhythm: Sinus Rhythm Exam Date: 03/07/2024 10:31 AM Exam Location: Echo Lab Patient Status: Outpatient Admit Date: 03/07/2024 Staff Ordering Physician: Christina Diaz APRN Attending Provider: Christina Diaz APRN Exercise Technologist: Miryam Urrutia CT Exercise Physician: Hermilo Lawton DO Exam Type: CA stress test treadmill w NM Study Info Indications R07.89 - Other chest pain A nuclear stress test was performed. Summary 1. 1. Negative Lee exercise stress test for ischemic ST changes by ECG criteria. 2. 2. Good functional capacity, achieving 10 METs of workload. 3. 3. Baseline hypertension. 4. 4. Appropriate HR response to exercise. 5. 5. Appropriate HR recovery at 1 minute post exercise. 6. 6. Nuclear scan to follow and will be reported separately. Please correlate with it. 7. 7. Patient informed of the above results. Protocol: Lee Stress ECG Details Stage: REST Duration (min): 4 min : 14 sec Speed (mph): 0.0 Grade (%): 0 HR (bpm): 67 SBP (mmHg): 146 DBP (mmHg): 89 METS: --- Stage: REST Duration (min): 9 min : 24 sec Speed (mph): 0.0 Grade (%): 0 HR (bpm): 69 SBP (mmHg): 146 DBP (mmHg): 89 METS: --- Stage: STAGE 1 Duration (min): 1 min : 0 sec Speed (mph): 1.7 Grade (%): 10 HR (bpm): 98 SBP (mmHg): 146 DBP (mmHg): 89 METS: --- Stage: STAGE 1 Duration (min): 2 min : 0 sec Speed (mph): 1.7 Grade (%): 10 HR (bpm): 94 SBP (mmHg): 146 DBP (mmHg): 89 METS: --- Stage: STAGE 1 Duration (min): 3 min : 0 sec Speed (mph): 1.7 Grade (%): 10 HR (bpm): 99 SBP (mmHg): 146 DBP (mmHg): 89 METS: --- Stage: STAGE 2 Duration (min): 1 min : 0 sec Speed (mph): 2.5 Grade (%): 12 HR (bpm): 107 SBP (mmHg): 164 DBP (mmHg): 66 METS: --- Stage: STAGE 2 Duration (min): 2 min : 0 sec Speed (mph): 2.5 Grade (%): 12 HR (bpm): 109 SBP (mmHg): 182 DBP (mmHg): 91 METS: --- Stage: STAGE 2 Duration (min): 3 min : 0 sec Speed (mph): 2.5 Grade (%): 12 HR (bpm): 114 SBP (mmHg): 182 DBP (mmHg): 91 METS: --- Stage: STAGE 3 Duration (min): 1 min : 0 sec Speed (mph): 3.4 Grade (%): 14 HR (bpm): 130 SBP (mmHg): 182 DBP (mmHg): 91 METS: --- Stage: STAGE 3 Duration (min): 2 min : 0 sec Speed (mph): 3.4 Grade (%): 14 HR (bpm): 137 SBP (mmHg): 182 DBP (mmHg): 91 METS: --- Stage: STAGE 3 Duration (min): 2 min : 30 sec Speed (mph): 3.4 Grade (%): 14 HR (bpm): 148 SBP (mmHg): 182 DBP (mmHg): 91 METS: --- Stage: RECOVERY Duration (min): 0 min : 29 sec Speed (mph): 0.0 Grade (%): 0 HR (bpm): 142 SBP (mmHg): 182 DBP (mmHg): 91 METS: --- Stage: RECOVERY Duration (min): 1 min : 29 sec Speed (mph): 0.0 Grad
== END 2024-03-07 09:42 | disposition home or self-care (01) ==
LOC: ANHCARD 09:44
PROVIDERS: PCP Nurse Practitioner Family; Visit Provider Nurse Practitioner Family
DX: R07.89 Other chest pain (principal); I10 Essential (primary) hypertension
CPT/HCPCS: 78452; 93017; A9502

== ENCOUNTER 2024-07-13 11:27 | Outpatient (CLI) | payer OTHER, SELFPAY ==
--- NOTE | ~2024-07-13 | XR_ITS ---
Right Shoulder Technique: AP and scapular Y views were obtained. Clinical History: Pain Findings: No fracture or dislocation is seen. Osseous alignment is anatomic. The glenohumeral and acr omioclavicular joints demonstrate mild degenerative change. Soft tissues are unremarkable. Impression: Mild degenerative changes, as above. Reviewed, dictated and finalized at [facility]. [employer] Impression: Mild degenerative changes, as above.
== END 2024-07-13 11:28 | disposition home or self-care (01) ==
LOC: MICIMG 11:28
PROVIDERS: PCP Nurse Practitioner Family; Visit Provider Nurse Practitioner Family
DX: M19.011 Primary osteoarthritis, right shoulder (principal)
CPT/HCPCS: 73030

== ENCOUNTER 2024-12-27 14:41 | Emergency (ER) | payer OTHER, SELFPAY ==
[2024-12-27 14:48] VITALS: BP 165/98; PULSE 81; RESP 18; TEMP 36.6; O2SAT 94
--- NOTE | 2024-12-27 14:48 | ED_ITS ---
HPI - URI/Sore Throat General Chief Complaint: Shortness of Breath/Dyspnea Stated Complaint: SOB Time Seen by Provider: 12/27/24 15:00 Source: patient, RN notes reviewed and old records reviewed Mode of arrival: ambulatory Limitations: no limitations History of Present Illness HPI Narrative: 64-year-old male presents to the [facility] with concerns for elevated blood pressure, increasing shortness of breath, use like his heart is racing, left arm tingling and numbness. Patient reports he started with some very vague symptoms almost a week ago, got worse today. [facility] Patient denies any abdominal pain. No extremity swelling. Denies chest pain or pressure Patient reports that his blood pressure was checked at work, was elevated in the 180s/ 118 Treatments prior to arrival: none Related Data Home Medications ?Medication ?Instructions ?Recorded ?Confirmed ?Last Taken ?Type travoprost 0.004 % eye drops 1 drop ophthalmic (eye) QPM 12/28/19 12/21/24 Unknown History Allergies Allergy/AdvReac Type Severity Reaction Status Date / Time No Known Allergies Allergy Verified 12/27/24 15:22 Review of Systems Review of Systems: All systems reviewed & are unremarkable except as noted in HPI and below Constitutional: Constitutional: Reports no additional constitutional complaints ENT: Reports system reviewed and no additional complaints, except as documented Cardiovascular: Cardiovascular: Reports as per HPI, Denies chest pain, Reports rapid heart rate, Denies edema, Denies leg edema, Reports radiating jaw, neck or arm pain (Numbness and tingling left arm) and Reports dyspnea Respiratory: Respiratory: Reports as per HPI, Denies chest congestion, Denies cough and Reports dyspnea Musculoskeletal: Musculoskeletal: Reports no additional musculoskeletal complaints Integumentary/Breasts: Skin/Breast: Reports system reviewed and no additional complaints, except as docu PMFSH Past Medical History Medical History Anxiety Anxiety disorder, unspecified Obesity (BMI 30-39.9) Cleft lip Essential (primary) hypertension Major depressive disorder, single episode, unspecified Mixed hyperlipidemia Obstructive sleep apnea (adult) (pediatric) Surgical History Surgical History History of eye surgery History of hernia surgery S/P lumbar fusion H/O colonoscopy (~06/2019) Hx of tonsillectomy Family History Family History Mother Family history of glaucoma Depression Family history of Parkinson's disease Father Hypertension Malignant neoplasm of prostate Family history of cardiovascular disease Other Cerebrovascular accident Diabetes mellitus Social History Social History Smoking status: Former smoker Tobacco type: cigarettes Alcohol intake: never Substance use type: does not use Lack of Transportation: No Lack of Food: Never True Current Housing: I Have Housing Concerned About Future Housing: No Difficulty Paying Gas/Electric Bills: No Difficulty Paying for Meds: No Currently Unemployed: No Education: Master's Degree or Higher Difficulty w/ Childcare or Family Care: No Living arrangements: with family Spiritual care concerns: No Comments At the time of my signature, I reviewed and agree with the nursing past medical, surgical, social, and family history. There is no relevant family history pertinent to the patient complaint. Exam Const: General: cooperative, healthy appearing, comfortable, no acute distress, well developed, alert and well nourished Nutritional Appearance: well nourished Orientation/consciousness: patient oriented x3 Limitations: no limitations HENMT: Head: normal to inspection Mouth: Yes Normal oral and palatal mucosa present, Yes lip normal, Yes tongue normal and Yes moist mucous membranes Eyes: General: appearance normal, both eyes and all related structures Alignment and Position: alignment normal Neck: Neck: normal visual inspection, full ROM, no lymphadenopathy and no meningeal signs Chest: Chest palpation & inspection: normal inspection of the chest Resp: Effort & Inspection: normal respiratory effort and able to speak in complete sentences Auscultation: clear to auscultation bilaterally, no crackles, no rales, no rhonchi and no wheezes Cardio: Rate: regular rate Rhythm: regular rhythm Peripheral pulses: Peripheral pulses 2+ throughout GI: GI Palp: No abdominal tenderness Skin: General skin exam: normal color and no rashes or lesions noted Neuro: General: patient oriented x3, gait normal, moves all extremities and no meningeal signs Cognition (Neuro): normal cognition Speech: normal speech Gait exam (Neuro): Normal gait present Extrem: General: normal to inspection, full ROM, capillary refill normal and normal gait Right lower extremity: ankle Details: normal to inspection and no edema Left lower extremity: ankle Details: normal to inspection and no edema Psych: Appearance: grossly normal and well kempt Mental Status: mental status grossly normal Speech and movement: Normal speech and movement present and Clear speech present Affect: normal affect Attitude: cooperative Course Course Level of Care: Express Care Visit Vital Signs Vital signs: Vital Signs Temperature 98 F 12/27/24 14:48 Pulse Rate 81 12/27/24 14:48 Respiratory Rate 18 12/27/24 14:48 Blood Pressure 165/98 H 12/27/24 14:48 Pulse Oximetry 94 12/27/24 14:48 Oxygen Delivery Room Air 12/27/24 14:48 Temperature 98 F 12/27/24 14:48 Pulse Rate 81 12/27/24 14:48 Respiratory Rate 18 12/27/24 14:48 Blood Pressure 165/98 H 12/27/24 14:48 Pulse Oximetry 94 12/27/24 14:48 Oxygen Delivery Room Air 12/27/24 14:48 Reviewed Transfer Transfered to: [place] (Per patient request) Transportation: Other (POV, declined EMS) Transfer rationale: Due to patient's history, chief complaints of shortness of breath, numbness tingling in the left arm, heart racing sending for higher level of care Accepting physician: Dr. Sawyer MDM - URI/Sore Throat MDM Narrative Medical decision making narrative: Patient arrives to the [facility] with complaints of increasing shortness of breath, left arm numbness and tingling, racing heart. EKG obtained. Oxygen placed due to oxygen level being at 90% on arrival. EKG showed no acute findings. Discussed transfer to the ER with his patient, declined EMS at this time. Discussed risks. Transfer instructions reviewed with patient go directly to the ER. EMS was offered, patient declined. All questions have been answered, and the patient deny any further questions. Some parts of this dictation were generated by voice recognition software and may contain typographical and/or grammatical inaccuracies. Differential Diagnosis Differential diagnosis: Likely upper respiratory infection, viral infection, bronchitis and other (Congestive heart failure, PE, AK, non-STEMI, pneumonia) ECG Data EKG #1: Attestation: I personally reviewed and interpreted this ECG as follows: ECG completion date: 12/27/24 ECG completion time: 15:02 Prior ECG tracings: available for review (01/19/2024) Interpretation: No acute changes noted from previous EKG. Sinus rhythm, normal EKG, no ST elevation or depression noted. Ventricular rate of 75, VA interval 136, QRS duration 103. Critical Care Time Critical Care Time Critical Care Time: No Discharge Plan Discharge Clinical Impression: Acute dyspnea Patient Disposition: Acute Care Hospital Condition: Stable Instructions: Antibiotic Form Patient Language: Wallisian Prescriptions: No Action testosterone cypionate [Depo-Testosterone] 200 mg/mL oil 200 mg IM .10 days Qty: 10 3RF Rx Instructions: give syringe and needles to inject tramadol 50 mg tablet 50 mg PO .q 4-6 PRN (Reason: pain) Qty: 60 0RF hydroxyzine HCl 10 mg tablet 10 mg PO TID PRN (Reason: anxiety) Qty: 30 2RF omeprazole 20 mg capsule,delayed release(DR/EC) 20 mg PO DAILY Qty: 30 0RF travoprost 0.004 % drops 1 drop EACH EYE QPM cyclobenzaprine 10 mg tablet 10 mg PO TID PRN (Reason: muscle spasm) Qty: 30 0RF trazodone 50 mg tablet See Rx Instructions .ROUTE .COMPLEX Qty: 90 1RF Dose Instruction: TAKE 1 TABLET(50 MG) BY MOUTH EVERY NIGHT AT BEDTIME Rx Instructions: TAKE 1 TABLET(50 MG) BY MOUTH EVERY NIGHT AT BEDTIME bupropion HCl [Wellbutrin XL] 300 mg tablet extended release 24 hr 300 mg PO QAM Qty: 90 3RF vilazodone 40 mg tablet 40 mg PO DAILY Qty: 90 3RF Rx Instructions: must administer with a meal/food metformin 500 mg tablet extended release 24 hr See Rx Instructions .ROUTE .COMPLEX Qty: 360 1RF Dose Instruction: TAKE 2 TABLETS BY MOUTH EVERY MORNING AND EVERY EVENING Rx Instructions: TAKE 2 TABLETS BY MOUTH EVERY MORNING AND EVERY EVENING atorvastatin 40 mg tablet See Rx Instructions .ROUTE .COMPLEX Qty: 90 1RF Dose Instruction: TAKE 1 TABLET BY MOUTH EVERY NIGHT AT BEDTIME Rx Instructions: TAKE 1 TABLET BY MOUTH EVERY NIGHT AT BEDTIME aripiprazole 2 mg tablet 2 mg PO QHS Qty: 30 5RF (DME) BD Integra Syringe 3 mL 23 gauge x 1 syringe See Rx Instructions .ROUTE .COMPLEX Qty: 100 0RF Dose Instruction: USE DIRECTED Rx Instructions: USE DIRECTED fenofibrate 160 mg tablet See Rx Instructions .ROUTE .COMPLEX Qty: 90 2RF Dose Instruction: TAKE 1 TABLET BY MOUTH EVERY DAY Rx Instructions: TAKE 1 TABLET BY MOUTH EVERY DAY Follow-up/Referrals: Christina Diaz APRN [Primary Care Provider] -
--- NOTE | 2024-12-27 14:51 | ECG_ITS ---
Test Date: 2024-12-27 15:02:52 Measurements Intervals [place] Rate: 75 P: 42 CO: 136 QRS: 18 QRSD: 103 T: 44 QT: 374 QTc: 419 Interpretive Statements SINUS RHYTHM Compared to ECG 01/19/2024 12:05:29 No significant changes Electronically Signed On 12-28-2024 12:35:37 CDT by Stella Abad M.D.
[2024-12-27 15:15] VITALS: PULSE 94; RESP 18; O2SAT 94
--- NOTE | 2024-12-27 15:23 | PC.NURSE ---
Pt was offered EMS transport to hospital due to c/o lt arm tingling and SOB. Pt refuses EMS transport and prefers to drive himself to [place] [facility]. At 1504 Express Care provider Jenna Morgan spoke with ED physician Skye Cohen MD via telephone. At 1510 this nurse gave phone report to nurse Zunilda Purcell at [place] [facility]. At 1515 pt was instructed to drive directly to [place] [facility] and go to Triage Desk with paper work. Pt instructed to remain NPO and no stops between [facility] and [place] [facility]. Pt instructed to stick puller and call 911 should his condition change en route. Understanding verbalized and pt left [facility] ambulatory to private vehicle. Pt was 94 % saturation on room air and 94 NSR at time of departure
== END 2024-12-27 15:15 | disposition short-term general hospital (02) ==
PROVIDERS: Emergency Provider Nurse Practitioner; PCP Nurse Practitioner Family
DX: R06.00 Dyspnea, unspecified (principal); Z87.891 Personal history of nicotine dependence; I10 Essential (primary) hypertension; E78.2 Mixed hyperlipidemia; E66.9 Obesity, unspecified; Z68.33 Body mass index [BMI] 33.0-33.9, adult; F41.9 Anxiety disorder, unspecified; F32.9 Major depressive disorder, single episode, unspecified
CPT/HCPCS: 93005; 99213; G0463

== ENCOUNTER 2024-12-27 15:36 | Inpatient (IN) | payer OTHER, SELFPAY ==
[2024-12-27] VITALS (8 sets, daily range): BP systolic 144–172; BP diastolic 88–97; PULSE 71–84; RESP 16–19; TEMP 36.4–36.7; O2SAT 92–95; BMI 33.5
--- NOTE | ~2024-12-27 | CT_ITS ---
EXAMINATION: CTA chest PE protocol DATE: 12/27/2024 18:50 CDT INDICATION: Shortness of breath with exertion TECHNIQUE: Computed tomographic angiography (CTA) of the chest was performed with 100 mL Omnipaque-35 0 intravenous contrast. The dose-length product was 771.78 mGy-cm. Maximum intensity projection 3D-re constructions of the aorta and other arteries were constructed by the technologist on a separate work station. COMPARISON: None. FINDINGS/OBSERVATIONS: PULMONARY ARTERIES: Multiple filling defects are identified within the lobar, segmental and subsegmen sonny branches. Within the left side: Within the left apical posterior and anterior branch as well as within the interlobar artery, the cynthia gular branches as well as the left lower lobe branches. Within the right side: Within the apical branch of the right upper lobe, extending into the interlobar artery and into the r ight middle lobe branches. Additional filling defects are present within the right lower lobe branches, specifically within the posterior basal, lateral basal and anterobasal. A possible filling defect is identified within the confluence of the left brachiocephalic vein, versu s a filling defect secondary to flow differential. THORACIC AORTA: No aneurysmal dilatation or dissection is present. The great vessels are intact LUNGS: Patchy groundglass opacification detected bilaterally, findings suggesting pulmonary edema. MEDIASTINUM: No morphologically suspicious or pathologically enlarged lymph nodes are identified with in the mediastinum or bilateral axilla. BONES OF THE CHEST: No acute fracture. No significant degenerative disease. No lytic or blastic lesions. HEART: Flattening of the interventricular septum is present. The RV to LV ratio is 1.2, consistent with right heart strain. The heart is enlarged, without pericar dial effusion. IMPRESSION: Extensive bilateral pulmonary embolus within the lobar, segmental and subsegmental branches. Additional findings suggesting right heart strain, as detailed above. These findings were discussed with Bethany Raymond at 7pm on 12/27/2024 Reviewed, dictated and finalized at location A. IMPRESSION: Extensive bilateral pulmonary embolus within the lobar, segmental and subsegmen sonny branches. Additional findings suggesting right heart strain, as detailed above. These findings were discussed with Bethany Raymond at 7pm on 12/27/2024
--- NOTE | ~2024-12-27 | US_ITS ---
EXAMINATION: US venous doppler [facility] DATE: 12/27/2024 18:58 INDICATION: Pain and swelling TECHNIQUE: Grayscale ultrasound images without and with compression and Doppler ultrasound images of the left lower extremity veins were obtained. COMPARISON: None. FINDINGS: The visualized portions of left common femoral vein, profunda (deep) femoral vein, femoral vein and g reater saphenous vein outflow are patent. Noncompressibility and absence of flow is identified within the left popliteal, posterior tibial, per koehler and gastrocnemius veins. IMPRESSION: Deep venous thrombosis from the level of the left popliteal vein peripherally to the gastrocnemius ve in. Given the clot burden of pulmonary emboli, would recommend a right lower extremity duplex ultrasound as well Reviewed, dictated and finalized at location A. IMPRESSION: Deep venous thrombosis from the level of the left popliteal vein peripherally t o the gastrocnemius vein. Given the clot burden of pulmonary emboli, would recommend a right lower extrem ity duplex ultrasound as well
--- NOTE | ~2024-12-27 | US_ITS ---
EXAMINATION: US venous doppler LE RT DATE: 12/27/2024 21:00 INDICATION: Bilateral pulmonary emboli with extensive left lower extremity DVT TECHNIQUE: Grayscale ultrasound images without and with compression and Doppler ultrasound images of the right lower extremity veins were obtained. COMPARISON: None. FINDINGS: The visualized portions of right common femoral vein, profunda (deep) femoral vein, femoral vein, pop liteal vein, peroneal veins, posterior tibial veins, and greater saphenous vein outflow are patent. IMPRESSION: 1. No deep venous thrombosis within the right lower extremity, as detailed above. Reviewed, dictated and finalized at location A. IMPRESSION: 1. No deep venous thrombosis within the right lower extremity, as detailed abo ve.
--- OUTSIDE RECORDS SUMMARY | 2024-12-27 15:38 | XMS_ITS | Referral Summary ---
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 Name Role Phone Mike Early MD Primary Care Provider [phone] Allergies No known active allergies Medications atorvastatin (LIPITOR) 40 mg tabletIndicati ons:hyperlipid emia Take 40 mg by mouth nightly 1 Active fenofibrate (TRIGLIDE) 160 mg tabletIndicati ons:hyperlipid emia Take 160 mg by mouth nightly 1 Active metFORMIN XR (GLUCOPHAGE XR) 500 mg 24 hr tabletIndicati ons:type 2 diabetes mellitus Take 1,000 mg by mouth nightly 1 Active latanoprost (XALATAN) 0.005 % ophthalmic solutionIndica tions:open angle glaucoma Administer 1 drop into both eyes nightly 1 Active traZODone (DESYREL) 50 mg tabletIndicati ons:insomnia associated with depression Take 50 mg by mouth nightly as needed 1 Active multivitamin capsuleIndicat ions:Vitamin Deficiency Prevention Take 1 capsule by mouth every morning Active levocetirizine (XYZAL) 5 mg tabletIndicati ons:Allergic Rhinitis Take 5 mg by mouth every evening Active acetaminophen (TYLENOL) 500 mg tablet Take 1,000 mg by mouth every 6 (six) hours as needed for pain Active apple cider vinegar 300 mg tabletIndicati ons:supp Take 300 mg by mouth every morning Active guaiFENesin ER (MUCINEX) 600 mg 12 hr tabletIndicati ons:allergies Take 600 mg by mouth 2 (two) times a day Active buPROPion XL (WELLBUTRIN XL) 300 mg 24 hr tablet Take 300 mg by mouth every morning 2 Active traMADoL (ULTRAM) 50 mg tablet Take 50 mg by mouth 2 Active gabapentin (NEURONTIN) 300 mg capsule Take 2 capsules (600 mg total) by mouth 3 (three) times a day 180 capsule 1 2 Active Viibryd 40 mg tablet Take 40 mg by mouth daily 2 Active cyclobenzaprin e (FLEXERIL) 10 mg tablet Take 1 tablet (10 mg total) by mouth 3 (three) times a day as needed for muscle spasms 3 Active testosterone 50 mg/5 gram (1 %) APPLY 100MG TRANSDERMALLY EVERY MORNING 3 Active ibuprofen 200 mg tab/cap Take 1 tablet/capsule (200 mg total) by mouth every 6 (six) hours as needed for pain Active Active Problems Problem Noted Date Diagnosed Date Type 2 diabetes mellitus 12/03/2021 Hyperlipemia 12/03/2021 Degenerative spondylolisthesis 10/14/2021 Overview (10/14/2021): Added automatically from request for surgery [id number] Spinal stenosis, lumbar isaias on, with neurogenic claudication 10/14/2021 Overview (10/14/2021): Added automatically from request for surgery [id number] Immunizations Immunization Administration Dates Next Due Influenza, Quadrivalent, Rec ombinant, Egg Free, Preservative Free, Intramuscular 05/07/2020 Influenza, Quadrivalent, Spl it, Preservative Free, Intramuscular 05/23/2018 MMR 12/15/2018 Pfizer SARS-CoV-2 Monovalent Vaccination (12+ Yrs) PURPLE 07/30/2021 Tdap 12/15/2018 Social History Tobacco Use Types Packs/Day Years Used Date Smoking Tobacco: Former Cigarettes 0.5 30.9 1 976 - 07/13/2006 Smokeless Tobacco: Never Tobacco Cessation:Counseling Given: Not Answered AUDIT-C Answer Date Recorded Q1: How often do you have a drink containing alc ohol? Monthly or less 08/19/2022 Q2: How many drinks containi ng alcohol do you have on a typical day when you are drinking? 1 or 2 08/19/2022 Q3: How often do you have si x or more drinks on one occasion? 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 Gender Identity Not on file Sexual Orientation Not on file Last Filed Vital Signs Vital Sign Reading Time Taken Comments Blood Pressure 158/94 08/19/2022 9:39 AM SAMMYING MACHINE OPERATOR Pulse 72 08/19/2022 9:39 AM SAMMYING MACHINE OPERATOR Temperature 36.8 C (98.3 F) 07/10/2022 9:09 AM SAMMYING MACHINE OPERATOR Respiratory Rate 16 07/10/2022 9:09 AM SAMMYING MACHINE OPERATOR Oxygen Saturation 97% 07/10/2022 9:09 AM SAMMYING MACHINE OPERATOR Inhaled Oxygen Concentration - - Weight 104.2 kg (229 lb 12.8 oz) 03/21/2023 8:34 AM CDT Height 185.4 cm (6' 1 ) 03/21/2023 8:34 AM CDT Body Mass Index 30.32 03/21/2023 8:34 AM CDT Plan of Treatment Not on file Medical Devices Implanted Type Area Journal Box Inspector Device Identifier Shelf Expiration Date Model / Serial / Lot Bmp Infuse Sm [id number] - [id number] Implanted:Qty: 1 on 12/03/2021 by Gabriel Haddad MD at [facility] N/A: Spine Lumbar Medtronic Inc [id number] 04/08/2023 [id number] / / [id number] K2m [employer]c [id number] [place] Od7.5 Mm L50 Mm Polyaxial Spine Screw Bone - [id number] Implanted:Qty: 5 on 12/03/2021 by Gabriel Haddad MD at [facility] N/A: Spine Lumbar Fertile Spine [id number] / / Spineart [employer] Sjt-Ls 50 25-S Screw Spn Pedicle Sld 5x25mm - [id number] Implanted:Qty: 2 on 12/03/2021 by Gabriel Haddad MD at [facility] N/A: Spine Lumbar SPINEART USA INC 02/04/2029 SJT-LS 50 25-S / / [id number] Gel 10cc Demineralized Bone Matrix - [id number] Implanted:Qty: 1 on 12/03/2021 by Gabriel Haddad MD at [facility] N/A: Spine Lumbar Aditi Spine 02/16/2024 [id number] / / [id number] Allosource Crushed Fresh Frozen Cancellous 1-4mm Graft 15ml Bone [id number] - [id number] Implanted:Qty: 1 on 12/03/2021 by Gabriel Haddad MD at [facility] N/A: Spine Lumbar Allosource 12/18/2022 [id number] / / [id number] Spineart Usa Inc Sca-Lm 15 14-S Cage Spn Med 15d Alif Scarlet 14mm - [id number] Implanted:Qty: 1 on 12/03/2021 by Gabriel Haddad MD at [facility] N/A: Spine Lumbar SPINEART USA INC 01/01/2029 SCA-LM 15 14-S / / [id number] Medtronic Inc Infuse 20ga 2x1in Vial Absorbable Syringe Needle Medium Graft 5.6 [id number] - [id number] Implanted:Qty: 1 on 12/03/2021 by Gabriel Haddad MD at [facility] N/A: Spine Lumbar Medtronic Inc [id number] 04/08/2023 [id number] / / [id number] Allosource Crushed Chip Frozen Graft 60ml Bone Cancellous [id number] - [id number] Implanted:Qty: 1 on 12/03/2021 by Gabriel Haddad MD at [facility] N/A: Spine Lumbar Allosource 03/25/2026 [id number] / / [id number] Fertile Spine Trio 6mm 70mm Union Thoracolumbar Eliezer Spinal [id number] - [id number] Implanted:Qty: 2 on 12/03/2021 by Gabriel Haddad MD at [facility] N/A: Spine Lumbar Aditi Spine [id number] / / Aditi Spine [place] Spine Screw Set Alegrai [id number] - [id number] Implanted:Qty: 6 on 12/03/2021 by Gabriel Haddad MD at [facility] N/A: Spine Lumbar Aditi Spine [id number] / / Fertile Spine [place] Od7.5 Mm L45 Mm Polyaxial Spine Screw Bone [id number] - [id number] Implanted:Qty: 1 on 12/03/2021 by Gabriel Haddad MD at [facility] N/A: Spine Lumbar Aditi Spine [id number] / / Procedures Procedure Name Priority Date/Time Associated Diagnosis Comments EGFR Routine 12/08/2021 3:26 AM CDT LIPID PANEL STAT 12/03/2021 6:05 PM CDT POCT HEMOGLOBIN A1C Routine 11/09/2021 1 :52 PM CDT from Last 3 Months or Most Recently Relevant to Health Maintenance Results * (ABNORMAL) eGFR (12/08/2021 3:26 AM CDT) eGFR 73(L) 90 - 130 mL/min/1. 73 m2 [facility] Comment: Interpretive Data Reference Interval Normal >/= 90 mL/min/1.73m2 Mildly decreased* 60 - 89 mL/min/1.73m2 Mildly to moderately decreased 45 - 59 mL/min/1.73m2 Moderately to severely decreased 30 - 44 mL/min/1.73m2 Severely decreased 15 - 29 mL/min/1.73m2 Kidney Failure < 15 mL/min/1.73m2 *Relative to young adult level Estimated glomerular filtration rate is determined by the 2020 CKD-EPI equation recommended by the National Kidney Foundation (A Unifying Approach to GFR Estimation: Recommendations of the NKF-ASK Task Force on Reassessing the Inclusion of Race in Diagnosing Kidney Disease, JASN 2020). The CKD-EPI equation should not be used for patients with unstable renal function and has not been validated in children and those over 70. Current interpretive data was last reviewed 2021. Blood 12/08/2021 3:26 AM CDT 12/08/2021 3:38 AM CDT us Tiago Pack NP LAB BLOOD ORDERABLES Final Re sult [facility] Department [place] [address] * (ABNORMAL) Lipid panel (12/03/2021 6:05 PM CDT) Cholesterol 156 30 - 199 mg/dL [facility] Comment: Interpretive Data Ages < or = 19 years Acceptable: <170 mg/dL Borderline high: 170-199 mg/dL High: >or= 200 mg/dL Ages > or = 20 years Desirable: <200 mg/dL Borderline high: 200-239 mg/dL High: >or= 240 mg/dL Literature References: 1. Expert Panel on Integrated Guidelines for Cardiovascular Health and Risk Reduction in Children and Adolescents. Pediatrics 2011;128:S213 2. NCEP Expert Panel. Circulation 2004;110:227 Current Interpretive Data was last revised on 2018. Triglycerides 419(H) <=149 mg/dL [facility] Comment: Interpretive Data Ages < or = 9 years Acceptable: <75 mg/dL Borderline high: 75-99 mg/dL High: >or= 100 mg/dL Ages 10 to 20 years Acceptable: <90 mg/dL Borderline high: 90-129 mg/dL High: >or= 130 mg/dL Ages > or = 20 years Desirable: <150 mg/dL Borderline high: 150-199 mg/dL High: 200-499 mg/dL Very high: >or= 499 mg/dL Literature References: 1. Expert Panel on Integrated Guidelines for Cardiovascular Health and Risk Reduction in Children and Adolescents. Pediatrics 2011;128:S213 2. NCEP Expert Panel. Circulation 2004;110:227 Current Interpretive Data was last revised on 2018. HDL 25(L) >=40 mg/dL [facility] Comment: Interpretive Data Ages < or = 19 years Acceptable: >45 mg/dL Borderline low: 40-45 mg/dL Low: <40 mg/dL Ages > or = 20 years Desirable: >or= 60 mg/dL Low: <40 mg/dL Literature References: 1. Expert Panel on Integrated Guidelines for Cardiovascular Health and Risk Reduction in Children and Adolescents. Pediatrics 2011;128:S213 2. NCEP Expert Panel. Circulation 2004;110:227 Current Interpretive Data was last revised on 2018. LDL, calculated See Comment <=129 [facility] Comment: Unable to calculate LDL due to elevated triglyceride. Interpretive Data Ages < or = 19 years Acceptable: <110 mg/dL Borderline high: 110-129 mg/dL High: >or= 130 mg/dL Ages > or = 20 years Optimal: <100 mg/dL Near optimal: 100-129 mg/dL Borderline high: 130-159 mg/dL High: >160 mg/dL Literature References: 1. Expert Panel on Integrated Guidelines for Cardiovascular Health and Risk Reduction in Children and Adolescents. Pediatrics 2011;128:S213 2. NCEP Expert Panel. Circulation 2004;110:227 Current Interpretive Data was last revised on 2018. Non-HDL Cholesterol 131 mg/dL [facility] Comment: Interpretive Data Ages < or = 19 years Acceptable: <120 mg/dL Borderline high: 120-144 mg/dL High: >145 mg/dL Ages > or = 20 years When triglycerides are >200 mg/dL, Non-HDL cholesterol is a secondary target of therapy with treatment goals that are 30 mg/dL greater than the LDL cholesterol target. Literature References: 1. Expert Panel on Integrated Guidelines for Cardiovascular Health and Risk Reduction in Children and Adolescents. Pediatrics 2011;128:S213 2. NCEP Expert Panel. Circulation 2004;110:227 Current Interpretive Data was last revised on 2018. Chol/HDL ratio 6 [facility] Blood 12/03/2021 6:05 PM CDT 12/03/2021 6:26 PM CDT us Gabriel Haddad MD LAB BLOOD ORDERABLES Final Result [facility] Department [place] [address] * (ABNORMAL) POCT hemoglobin A1c (11/09/2021 1:52 PM CDT) Hgb A1C, POC 5.8(H) 4.0 - 5.6 % [facility] Est Average Gluc POC 120 mg/dL [facility] Comment: The ADA recommends reporting an estimated Average Glucose (eAG) with all Hemoglobin A1c results using the equation derived from a study of 507 normal and diabetic adults. Minority populations were underrepresented and children were not included. (Diabetes Care 31:8105-0078, 2008). The eAG is not equivalent to a fasting glucose. Blood 11/09/2021 1:52 PM CDT 11/09/2021 1:52 PM CDT us Gabriel Haddad MD POINT OF CARE TEST O RDERABLES Final Result [facility] Department [place] [address] from Last 3 Months or Most Recently Relevant to Health Maintenance Insurance [facility] Advance Directives For more information, please contact: [phone] * Full Code (Latest Code Status on File) Date Activated Date Inactivated Comments 12/03/2021 8:47 PM 12/08/2021 7:50 PM Care Teams Mower Mechanic Relationship Specialty Start Date End Date Mike Early MD PCP - General Family Medicine 06/08/22
--- OUTSIDE RECORDS SUMMARY | 2024-12-27 15:38 | XMS_ITS | Clinical Summary ---
Author Organization [facility] Address [address] [place] [id number] Care Team Providers Care Rail Engineer Name Role Phone Mike Early MD Primary Care Provider [phone] Allergies No known active allergies Medications atorvastatin [...] (10/14/2021): Added automatically from request for surgery [id number] Spinal stenosis, lumbar isaias on, with neurogenic claudication 10/14/2021 Overview (10/14/2021): Added automatically from request for surgery [id number] Immunizations Immunization Administration Dates Next Due Influenza, Quadrivalent, Rec ombinant, Egg Free, Preservative Free, Intramuscular 05/07/2020 Influenza, Quadrivalent, Spl it, Preservative Free, Intramuscular 05/23/2018 MMR 12/15/2018 Pfizer SARS-CoV-2 Monovalent Vaccination (12+ Yrs) PURPLE 07/30/2021 Tdap 12/15/2018 Surgical History Surgery Date Site/Laterality Comments FACET BLOCK LUMBAR SACRAL 1 LEVEL LEFT 05/26/2021 Bi lateral FACET BLOCK LUMBAR SACRAL 1 LEVEL LEFT 06/09/2021 Bi lateral TONSILLECTOMY 08/08/1968 - 08/07/1969 Bilateral HEMORROIDECTOMY 08/08/2002 - 08/07/2003 LASIK 08/08/2008 - 08/07/2009 Bilateral COSMETIC SURGERY VASECTOMY SPINAL FUSION Medical History Medical History Date Comments Hyperlipemia well controlled with meds Diabetes mellitus, type 2 (HCC) well controlled with meds--pt reports not told he had DM, but on meds and diet o manitain levels Depression well controlled with meds Seasonal allergies Glaucoma high normal so m eds to maintain GERD (gastroesophageal reflux disease) JANUARY 2021 Sleep apnea Arthritis Obesity Hypertension Family History Medical History Relation Name Comments Cancer Father YESENIA Diabetes Father YESENIA Heart attack Father YESENIA Heart disease Father YESENIA Hypertension Father YESENIA Cancer Maternal Grandfather GABRIELA Depression Mother FAM Stroke Mother FAM Relation Name Status Comments Father YESENIA Maternal Grandfather GABRIELA Mother FAM Social History Tobacco Use Types Packs/Day Years [...] on file Legal Sex Male 8:23 AM EDGE CUTTER Gender Identity Not on file Sexual Orientation Not on file Obstetrics History Last Filed Vital Signs Vital Sign Reading Time Taken Comments Blood Pressure 158/94 08/19/2022 9:39 AM EDGE CUTTER Pulse 72 08/19/2022 9:39 AM EDGE CUTTER Temperature 36.8 C (98.3 F) 07/10/2022 9:09 AM EDGE CUTTER Respiratory Rate 16 07/10/2022 9:09 AM EDGE CUTTER Oxygen Saturation 97% 07/10/2022 9:09 AM EDGE CUTTER Inhaled Oxygen Concentration - - Weight 104.2 kg (229 lb 12.8 oz) 03/21/2023 8:34 AM CDT Height 185.4 cm (6' 1 ) 03/21/2023 8:34 AM CDT Body Mass Index 30.32 03/21/2023 8:34 AM CDT Plan of Treatment Health Maintenance Due Date Last Done Comments Albumin Creatinine Ratio, Urine 1962 Colon Cancer Screening-Colonoscopy 1962 Depression Screening 1962 Hepatitis C Screening 1962 Prostate Cancer Screening-PSA 1962 Dilated Eye Exam 1962 Foot Exam 1962 Hepatitis B Screening 1980 Regular Well Visit/Exam 18-64 1980 Pneumococcal vaccine <65 (1 of 2 - PCV) 1981 Zoster Vaccine (1 of 2) 2012 Hemoglobin A1C 05/11/2022 11/09/2021 Lipid Panel 12/03/2022 12/03/2021 eGFR 12/08/2022 12/08/2021, 05/0 08/2021, 12/06/2021, Additional history exists Covid-19 Vaccine (2023-2 5 season) 2024 07/30/2021, 09/26/2020, 09/05/2020 Influenza Vaccine (Season Ended) 2025 05/07/20 20, 05/23/2018 DTaP/Tdap/Td Vaccine (2 - Td or Tdap) 12/15/2028 12/15/2018 Medical Devices Implanted Type Area Medical Sales Specialist Device Identifier Shelf Expiration Date Model / Serial / Lot Bmp Infuse Sm [id number] - [id number] Implanted:Qty: 1 on 12/03/2021 by Gabriel Haddad MD at [facility] N/A: Spine Lumbar Medtronic Inc [id number] 04/08/2023 [id number] / / [id number] [address] [phone] Panna Maria Od7.5 Mm L50 Mm Polyaxial Spine Screw Bone - [id number] Implanted:Qty: 5 on 12/03/2021 by Gabriel Haddad MD at [facility] N/A: Spine Lumbar Aditi Spine [id number] / / Spineart Usa Inc Sjt-Ls 50 25-S Screw Spn Pedicle Sld 5x25mm - [id number] Implanted:Qty: 2 on 12/03/2021 by Gabriel Haddad MD at [facility] N/A: Spine Lumbar SPINEART USA INC 02/04/2029 SJT-LS 50 25-S / / [id number] 10cc Demineralized Bone Matrix - [id number] Implanted:Qty: 1 on 12/03/2021 by Gabriel Haddad MD at [facility] N/A: Spine Lumbar Thatcher Spine 02/16/2024 [id number] / / [id number] Allosource Crushed Fresh Frozen Cancellous 1-4mm Graft 15ml Bone [id number] - [id number] Implanted:Qty: 1 on 12/03/2021 by Gabriel Haddad MD at [facility] N/A: Spine Lumbar Allosource 12/18/2022 [id number] / / [id number] Spineart Usa Inc Sca-Lm 15 14-S Cage Spn Med 15d Alif Scarlet 14mm - [id number] Implanted:Qty: 1 on 12/03/2021 by Gabriel Haddad MD at [facility] N/A: Spine Lumbar SPINEART USA INC 01/01/2029 SCA-LM 15 14-S / / [id number] Medtronic Inc Infuse 20ga 2x1in Vial Absorbable Syringe Needle Medium Graft 5.6 [id number] - [id number] Implanted:Qty: 1 on 12/03/2021 by Gabriel Haddad MD at [facility] N/A: Spine Lumbar Medtronic Inc [id number] 04/08/2023 [id number] / / [id number] Allosource Crushed Chip Frozen Graft 60ml Bone Cancellous [id number] - [id number] Implanted:Qty: 1 on 12/03/2021 by Gabriel Haddad MD at [facility] N/A: Spine Lumbar Allosource 03/25/2026 [id number] / / [id number] Aditi Spine Trio 6mm 70mm Union Thoracolumbar Eliezer Spinal [id number] - [id number] Implanted:Qty: 2 on 12/03/2021 by Gabriel Haddad MD at [facility] N/A: Spine Lumbar Aditi Spine [id number] / / Aditi Spine Panna Maria Spine Screw Set Alegria [id number] - [id number] Implanted:Qty: 6 on 12/03/2021 by Gabriel Haddad MD at [facility] N/A: Spine Lumbar Thatcher Spine [id number] / / Thatcher Spine Panna Maria Od7.5 Mm L45 Mm Polyaxial Spine Screw Bone [id number] - [id number] Implanted:Qty: 1 on 12/03/2021 by Gabriel Haddad MD at [facility] N/A: Spine Lumbar Thatcher Spine [id number] / / Procedures Procedure Name Priority Date/Time Associated Diagnosis Comments EGFR Routine 12/08/2021 3:26 AM CDT LIPID PANEL STAT 12/03/2021 6:05 PM CDT POCT HEMOGLOBIN A1C Routine 11/09/2021 1 :52 PM CDT from Last 3 Months or Most Recently Relevant to Health Maintenance Results * (ABNORMAL) eGFR (12/08/2021 3:26 AM CDT) eGFR 73(L) 90 - 130 mL/min/1. 73 m2 [facility] Comment: Interpretive Data Reference Interval Normal >/= [...] NP LAB BLOOD ORDERABLES Final Re sult [facility] [place] [address] * (ABNORMAL) Lipid panel (12/03/2021 6:05 PM CDT) Cholesterol 156 30 - 199 mg/dL [facility] Comment: Interpretive Data Ages < [...] revised on 2018. Triglycerides 419(H) <=149 mg/dL [facility] Comment: Interpretive Data Ages < [...] revised on 2018. HDL 25(L) >=40 mg/dL [facility] Comment: Interpretive Data Ages < [...] on 2018. LDL, calculated See Comment <=129 [facility] Comment: Unable to calculate LDL due to [...] revised on 2018. Non-HDL Cholesterol 131 mg/dL [facility] Comment: Interpretive Data Ages < [...] last revised on 2018. Chol/HDL ratio 6 [facility] Blood 12/03/2021 6:05 PM CDT 12/03/2021 6:26 PM CDT us Gabriel Haddad MD LAB BLOOD ORDERABLES Final Result [facility] Department [place] [address] * (ABNORMAL) POCT hemoglobin A1c (11/09/2021 1:52 PM CDT) Hgb A1C, POC 5.8(H) 4.0 - 5.6 % [facility] Est Average Gluc POC 120 mg/dL [facility] Comment: The ADA recommends reporting an estimated Average Glucose (eAG) with all Hemoglobin A1c results using the equation derived from a study of 507 normal and diabetic adults. Minority populations were underrepresented and children were not included. (Diabetes Care 31:0923-4948, 2008). The eAG is not equivalent to a fasting glucose. Blood 11/09/2021 1:52 PM CDT 11/09/2021 1:52 PM CDT us Gabriel Haddad MD POINT OF CARE TEST O RDERABLES Final Result [facility] [place] [address] from Last 3 Months or Most Recently Relevant to Health Maintenance Insurance [facility] H[facility]/PPO Address: [address] [address] [facility] HMO/PPO Address: [address] [address] [place] [address] [facility] HMO/PPO Address: [address] [address] [place] [address] Advance Directives For more information, please contact: [phone] * Full Code (Latest Code Status on File) Date Activated Date Inactivated Comments 12/03/2021 8:47 PM 12/08/2021 7:50 PM Care Teams Rail Engineer Relationship Specialty Start Date End Date Mike Early MD PCP - General Family Medicine 06/08/22
--- NOTE | 2024-12-27 17:09 | ED.SOB ---
HPI - SOB/Dyspnea General Chief Complaint: Shortness of Breath/Dyspnea <JULIANA Vee Last Filed: 12/27/24 17:19> Stated Complaint: Shortness of breath, tingling left arm <JULIANA Vee Last Filed: 12/27/24 17:19> Time Seen by Provider: 12/27/24 17:10 <JULIANA Vee Last Filed: 12/27/24 17:19> Focused HPI: Patient is a 64 y/o male who presents to the ED from urgent care with report of SOB. Patient reports he has been feeling increasingly short of breath over the past 1 week. States he feels short of breath with any sort of exertion. States even walking throughout his house, he has been having shortness of breath to the point he has to stop and rest for several minutes before he is able to continue with the activity. He denies chest pain, but admits to intermittent twinges in his left chest. Also reports having tingling in LUE today. Thinks he may have slept on his arm wrong. Patient does report having intermittent pain in his left lower leg for the past few weeks. Thought he may be pulled a muscle. Denies previous heart or lung issues. Does have sleep apnea and wears a CPAP. Denies history of blood clots. Denies recent surgery, immobilization, long distance travel, history of cancer. Reports chronic sinus issues, otherwise denies cough or cold symptoms, fevers. GENERAL: Well-appearing, obese with BMI of 33.6, and in no acute distress. HEAD: Normocephalic, atraumatic. CHEST: Clear to auscultation. ?No respiratory distress. No focal lung sounds. HEART: Regular rate and rhythm.? MSK: Slight swelling and tightness of L lower calf compared to R. No significant calf tenderness. NEURO: ?Alert and oriented x3. Patient screened in triage and initial orders placed.? ?Additional care and disposition to be based upon?diagnostic testing and treatment. <JULIANA Vee Last Filed: 12/27/24 17:19> Source: patient <JULIANA Vee Last Filed: 12/27/24 17:19> Mode of arrival: ambulatory <Sravani Hunt PA-C - Last Filed: 12/27/24 17:19> Limitations: no limitations <JULIANA Vee Last Filed: 12/27/24 17:19> History of Present Illness HPI Narrative: Agree with HPI <Jamie Sawyer MD - Last Filed: 12/27/24 20:47> Related Data Home Medications: Home Medications ?Medication ?Instructions ?Recorded ?Confirmed ?Last Taken ?Type travoprost 0.004 % eye drops 1 drop ophthalmic (eye) QPM 12/28/19 12/21/24 Unknown History <JULIANA Vee Last Filed: 12/27/24 17:19> Allergies/Adverse Reactions: Allergies Allergy/AdvReac Type Severity Reaction Status Date / Time No Known Allergies Allergy Verified 12/27/24 16:13 <Sravani Hunt PA-C - Last Filed: 12/27/24 17:19> Review of Systems Review of Systems: All systems reviewed & are unremarkable except as noted in HPI and below <Jamie Sawyer MD - Last Filed: 12/27/24 20:47> Constitutional: Constitutional: Reports no additional constitutional complaints <Jamie Sawyer MD - Last Filed: 12/27/24 20:47> ENT: Reports system reviewed and no additional complaints, except as documented <Jamie Sawyer MD - Last Filed: 12/27/24 20:47> Cardiovascular: Cardiovascular: Reports no additional cardiovascular complaints <Jamie Sawyer MD - Last Filed: 12/27/24 20:47> Respiratory: Respiratory: Reports no additional respiratory complaints <Jamie Sawyer MD - Last Filed: 12/27/24 20:47> [facility] Past Medical History Medical History: Medical History Anxiety Anxiety disorder, unspecified Obesity (BMI 30-39.9) Cleft lip Essential (primary) hypertension Major depressive disorder, single episode, unspecified Mixed hyperlipidemia Obstructive sleep apnea (adult) (pediatric) <JULIANA Vee Last Filed: 12/27/24 17:19> Surgical History Surgical History: Surgical History History of eye surgery History of hernia surgery S/P lumbar fusion H/O colonoscopy (~06/2019) Hx of tonsillectomy <Sravani Hunt PA-C - Last Filed: 12/27/24 17:19> Family History Family History: Family History Mother Family history of glaucoma Depression Family history of Parkinson's disease Father Hypertension Malignant neoplasm of prostate Family history of cardiovascular disease Other Cerebrovascular accident Diabetes mellitus <Sravani Hunt PA-C - Last Filed: 12/27/24 17:19> Social History Social History: Social History Smoking status: Former smoker Tobacco type: cigarettes Alcohol intake: never Substance use type: does not use Lack of Transportation: No Lack of Food: Never True Current Housing: I Have Housing Concerned About Future Housing: No Difficulty Paying Gas/Electric Bills: No Difficulty Paying for Meds: No Currently Unemployed: No Education: Master's Degree or Higher Difficulty w/ Childcare or Family Care: No Living arrangements: with family Spiritual care concerns: No <Sravani Hunt PA-C - Last Filed: 12/27/24 17:19> Exam Narrative: GENERAL: Well-appearing, well-nourished, and in no acute distress. HEAD: Normocephalic, atraumatic. ENT: Mucous membranes moist. NECK: Supple. CHEST: Clear to auscultation. No respiratory distress. HEART: Regular rate and rhythm. Normal peripheral pulses. ABDOMEN: Soft, nontender, nondistended. EXTREMITIES: Normal range of motion. swelling LLE>RLE SKIN: Warm, dry, no rash. NEURO: Alert and oriented x3. PSYCH: Normal mood and affect. <Jamie Sawyer MD - Last Filed: 12/27/24 20:47> Course Course Emergency Course: Patient educated on diagnosis and treatment plan. IV heparin started. Discussed with hospitalist service. Lab findings do not indicate any sort of heart strain and patient only becomes hypoxic when sleeping due to his JUDE. He has been put on supplemental oxygen for comfort for when that happens. <Jamie Sawyer MD - Last Filed: 12/27/24 20:47> Vital Signs Vital signs: Vital Signs Temperature 97.9 F 12/27/24 16:13 Pulse Rate 77 12/27/24 16:13 Respiratory Rate 16 12/27/24 16:13 Blood Pressure 158/90 H 12/27/24 16:13 Pulse Oximetry 95 12/27/24 16:13 Oxygen Delivery Room Air 12/27/24 16:13 Temperature 97.9 F 12/27/24 16:13 Pulse Rate 77 12/27/24 16:13 Respiratory Rate 16 12/27/24 16:13 Blood Pressure 158/90 H 12/27/24 16:13 Pulse Oximetry 94 12/27/24 20:08 Oxygen Delivery Nasal Cannula 12/27/24 20:08 Oxygen Flow Rate 2 12/27/24 20:08 <Sravani Hunt PA-C - Last Filed: 12/27/24 17:19> Vital Signs Temperature 97.9 F 12/27/24 16:13 Pulse Rate 77 12/27/24 16:13 Respiratory Rate 16 12/27/24 16:13 Blood Pressure 158/90 H 12/27/24 16:13 Pulse Oximetry 95 12/27/24 16:13 Oxygen Delivery Room Air 12/27/24 16:13 Temperature 97.9 F 12/27/24 16:13 Pulse Rate 77 12/27/24 16:13 Respiratory Rate 16 12/27/24 16:13 Blood Pressure 158/90 H 12/27/24 16:13 Pulse Oximetry 94 12/27/24 20:08 Oxygen Delivery Nasal Cannula 12/27/24 20:08 Oxygen Flow Rate 2 12/27/24 20:08 <Jamie Sawyer MD - Last Filed: 12/27/24 20:47> MDM - SOB/Dyspnea MDM Narrative Medical decision making narrative: MSE by NELLA in triage. <JULIANA Vee Last Filed: 12/27/24 17:19> Lab Data Result diagrams: 12/27/24 17:51 12/27/24 17:51 <Sravani Hunt PA-C - Last Filed: 12/27/24 17:19> Labs: Lab Results 12/27/24 Range/Units 17:51 WBC 7.9 (4.5-10.0) K/mm3 RBC 5.57 (4.6-6.20) M/mm3 Hgb 15.3 (14.0-18.0) g/dL Hct 47.9 (42.0-52.0) % MCV 86.0 (80-100) fl MCH 27.5 (26-34) pg MCHC 31.9 L (32-36) g/dl RDW 13.2 (11.5-14.5) % Plt Count 252 (150-375) k/mm3 MPV 10.0 (7.4-10.4) fl Immature Gran % (Auto) 0.5 (0-0.5) % Neut % (Auto) 59.8 (45.5-73.1) % Lymph % (Auto) 25.0 (18.3-44.2) % [place] % (Auto) 7.1 (2.6-8.5) % Eos % (Auto) 7.0 H (0-4.4) % Baso % (Auto) 0.6 (0.2-1.2) % Lymph # (Auto) 1.98 (0.9-3.2) K/mm3 [place] # (Auto) 0.6 (0.1-0.6) K/mm3 Eos # (Auto) 0.6 H (0-0.3) K/mm3 Baso # (Auto) 0.1 (0.0-0.1) K/mm3 Abs Immat Gran (auto) 0.04 H (0.00-0.031) K/mm3 Absolute Neuts (auto) 4.7 (1.3-6.7) K/mm3 Absolute Nucleated RBC 0.000 (0.0-0.012) K/mm3 Nucleated RBC % 0.0 (0.0-0.2) % PT 15.1 H (11.1-14.7) Seconds INR 1.1 APTT 28.1 (22.3-36.8) Seconds Sodium 143 (137-145) mmol/L Potassium 4.1 (3.4-5.0) mmol/L Chloride 109 H (98-107) mmol/L Carbon Dioxide 24 (22-30) mmol/L Anion Gap 10 (4-12) mmol/L BUN 21 H (9-20) mg/dL Creatinine 1.19 (0.7-1.3) mg/dL Estim Creat Clear Calc 72 ml/min Estimated GFR > 60 (59 - ) Glucose 110 (65-110) mg/dL Calcium 9.8 (8.4-10.2) mg/dL Magnesium 1.8 (1.6-2.3) mg/dL Total Bilirubin 0.8 (0.2-1.3) mg/dL AST 36 (17-59) U/L ALT 33 (6-50) U/L Alkaline Phosphatase 58 (38-126) U/L Troponin I < 0.012 (0.000-0.034) ng/mL NT-Pro-B Natriuret Pep 28 (19.9-100) pg/mL Total Protein 8.0 (6.3-8.2) g/dL Albumin 4.8 (3.5-5.1) g/dL Influenza A (RT-PCR) Negative (Negative) Influenza B (RT-PCR) Negative (Negative) RSV (RT-PCR) Negative (Negative) SARS-CoV-2 RNA (RT-PCR) Negative (Negative) <Sravani Hunt PA-C - Last Filed: 12/27/24 17:19> Lab Results 12/27/24 Range/Units 17:51 WBC 7.9 (4.5-10.0) K/mm3 RBC 5.57 (4.6-6.20) M/mm3 Hgb 15.3 (14.0-18.0) g/dL Hct 47.9 (42.0-52.0) % MCV 86.0 (80-100) fl MCH 27.5 (26-34) pg MCHC 31.9 L (32-36) g/dl RDW 13.2 (11.5-14.5) % Plt Count 252 (150-375) k/mm3 MPV 10.0 (7.4-10.4) fl Immature Gran % (Auto) 0.5 (0-0.5) % Neut % (Auto) 59.8 (45.5-73.1) % Lymph % (Auto) 25.0 (18.3-44.2) % [place] % (Auto) 7.1 (2.6-8.5) % Eos % (Auto) 7.0 H (0-4.4) % Baso % (Auto) 0.6 (0.2-1.2) % Lymph # (Auto) 1.98 (0.9-3.2) K/mm3 [place] # (Auto) 0.6 (0.1-0.6) K/mm3 Eos # (Auto) 0.6 H (0-0.3) K/mm3 Baso # (Auto) 0.1 (0.0-0.1) K/mm3 Abs Immat Gran (auto) 0.04 H (0.00-0.031) K/mm3 Absolute Neuts (auto) 4.7 (1.3-6.7) K/mm3 Absolute Nucleated RBC 0.000 (0.0-0.012) K/mm3 Nucleated RBC % 0.0 (0.0-0.2) % PT 15.1 H (11.1-14.7) Seconds INR 1.1 APTT 28.1 (22.3-36.8) Seconds Sodium 143 (137-145) mmol/L Potassium 4.1 (3.4-5.0) mmol/L Chloride 109 H (98-107) mmol/L Carbon Dioxide 24 (22-30) mmol/L Anion Gap 10 (4-12) mmol/L BUN 21 H (9-20) mg/dL Creatinine 1.19 (0.7-1.3) mg/dL Estim Creat Clear Calc 72 ml/min Estimated GFR > 60 (59 - ) Glucose 110 (65-110) mg/dL Calcium 9.8 (8.4-10.2) mg/dL Magnesium 1.8 (1.6-2.3) mg/dL Total Bilirubin 0.8 (0.2-1.3) mg/dL AST 36 (17-59) U/L ALT 33 (6-50) U/L Alkaline Phosphatase 58 (38-126) U/L Troponin I < 0.012 (0.000-0.034) ng/mL NT-Pro-B Natriuret Pep 28 (19.9-100) pg/mL Total Protein 8.0 (6.3-8.2) g/dL Albumin 4.8 (3.5-5.1) g/dL Influenza A (RT-PCR) Negative (Negative) Influenza B (RT-PCR) Negative (Negative) RSV (RT-PCR) Negative (Negative) SARS-CoV-2 RNA (RT-PCR) Negative (Negative) <Jamie Sawyer MD - Last Filed: 12/27/24 20:47> Imaging Data Radiologist's impression: ITS Impressions Chest CTA 12/27/24 18:49 IMPRESSION: Extensive bilateral pulmonary embolus within the lobar, segmental and subsegmental branches. Additional findings suggesting right heart strain, as detailed above. These findings were discussed with Bethany Raymond at 7pm on 12/27/2024 Venous Doppler Study 12/27/24 19:04 IMPRESSION: Deep venous thrombosis from the level of the left popliteal vein peripherally to the gastrocnemius vein. Given the clot burden of pulmonary emboli, would recommend a right lower extremity duplex ultrasound as well <Jamie Sawyer MD - Last Filed: 12/27/24 20:47> ECG Data EKG #1: ECG completion date: 12/27/24 <Jamie Sawyer MD - Last Filed: 12/27/24 20:47> ECG completion time: 17:42 <Jamie Sawyer MD - Last Filed: 12/27/24 20:47> EKG Interpretation: normal rate (71), sinus rhythm, no ST changes, normal QRS and normal QT <Jamie Sawyer MD - Last Filed: 12/27/24 20:47> Critical Care Time Critical Care Time Critical Care Time: Yes <Jamie Sawyer MD - Last Filed: 12/27/24 20:47> Total Critical Care Time: 35 <Jamie Sawyer MD - Last Filed: 12/27/24 20:47> Discharge Plan Discharge Clinical Impression: Pulmonary embolism <Sravani Hunt PA-C - Last Filed: 12/27/24 17:19> Patient Disposition: Still a Patient <JULIANA Vee Last Filed: 12/27/24 17:19> Condition: Stable <JULIANA Vee Last Filed: 12/27/24 17:19> Patient Language: Cuban <Sravani Hunt PA-C - Last Filed: 12/27/24 17:19> Prescriptions: No Action testosterone cypionate [Depo-Testosterone] 200 mg/mL oil 200 mg IM .10 days Qty: 10 3RF Rx Instructions: give syringe and needles to inject tramadol 50 mg tablet 50 mg PO .q 4-6 PRN (Reason: pain) Qty: 60 0RF hydroxyzine HCl 10 mg tablet 10 mg PO TID PRN (Reason: anxiety) Qty: 30 2RF omeprazole 20 mg capsule,delayed release(DR/EC) 20 mg PO DAILY Qty: 30 0RF travoprost 0.004 % drops 1 drop EACH EYE QPM cyclobenzaprine 10 mg tablet 10 mg PO TID PRN (Reason: muscle spasm) Qty: 30 0RF trazodone 50 mg tablet See Rx Instructions .ROUTE .COMPLEX Qty: 90 1RF Dose Instruction: TAKE 1 TABLET(50 MG) BY MOUTH EVERY NIGHT AT BEDTIME Rx Instructions: TAKE 1 TABLET(50 MG) BY MOUTH EVERY NIGHT AT BEDTIME bupropion HCl [Wellbutrin XL] 300 mg tablet extended release 24 hr 300 mg PO QAM Qty: 90 3RF vilazodone 40 mg tablet 40 mg PO DAILY Qty: 90 3RF Rx Instructions: must administer with a meal/food metformin 500 mg tablet extended release 24 hr See Rx Instructions .ROUTE .COMPLEX Qty: 360 1RF Dose Instruction: TAKE 2 TABLETS BY MOUTH EVERY MORNING AND EVERY EVENING Rx Instructions: TAKE 2 TABLETS BY MOUTH EVERY MORNING AND EVERY EVENING atorvastatin 40 mg tablet See Rx Instructions .ROUTE .COMPLEX Qty: 90 1RF Dose Instruction: TAKE 1 TABLET BY MOUTH EVERY NIGHT AT BEDTIME Rx Instructions: TAKE 1 TABLET BY MOUTH EVERY NIGHT AT BEDTIME aripiprazole 2 mg tablet 2 mg PO QHS Qty: 30 5RF (DME) BD Integra Syringe 3 mL 23 gauge x 1 syringe See Rx Instructions .ROUTE .COMPLEX Qty: 100 0RF Dose Instruction: USE DIRECTED Rx Instructions: USE DIRECTED fenofibrate 160 mg tablet See Rx Instructions .ROUTE .COMPLEX Qty: 90 2RF Dose Instruction: TAKE 1 TABLET BY MOUTH EVERY DAY Rx Instructions: TAKE 1 TABLET BY MOUTH EVERY DAY <Sravani Hunt PA-C - Last Filed: 12/27/24 17:19> Follow-up/Referrals: Christina Diaz, MUCKING MACHINE OPERATOR [Primary Care Provider] - <Sravani Hunt PA-C - Last Filed: 12/27/24 17:19>
--- NOTE | 2024-12-27 17:12 | ECG_ITS ---
Test Date: 2024-12-27 17:42:53 Measurements Intervals [place] Rate: 71 P: 43 NV: 163 QRS: 13 QRSD: 97 T: 58 QT: 374 QTc: 408 Interpretive Statements SINUS RHYTHM Compared to ECG 12/27/2024 15:02:52 No significant changes Electronically Signed On 12-28-2024 12:39:42 CDT by Stella Abad M.D.
[2024-12-27 17:57] LABS: Basophils Absolute Auto 0.1 K/mm3 (0.0-0.1); Basophils Percent Auto 0.6 % (0.2-1.2); Eosinophils Absolute Auto 0.6 K/mm3 (0-0.3); Hematocrit 47.9 % (42.0-52.0); Hemoglobin 15.3 g/dL (14.0-18.0); Immature Granulocyte Absolute 0.04 K/mm3 (0.00-0.031); Immature Granulocyte Percent A 0.5 % (0-0.5); Lymphocytes Absolute Auto 1.98 K/mm3 (0.9-3.2); Mean Corpuscular HGB Conc 31.9 g/dl (32-36); Mean Corpuscular Hemoglobin 27.5 pg (26-34); Monocytes Absolute Auto 0.6 K/mm3 (0.1-0.6); Monocytes Percent Auto 7.1 % (2.6-8.5); Neutrophils Absolute Auto 4.7 K/mm3 (1.3-6.7); Neutrophils Percent Auto 59.8 % (45.5-73.1); Platelet Count Result 252 k/mm3 (150-375); Red Blood Count 5.57 M/mm3 (4.6-6.20); Red Cell Distribution Width 13.2 % (11.5-14.5); White Blood Count 7.9 K/mm3 (4.5-10.0)
[2024-12-27 18:06] LABS: Alanine Aminotransferase 33 U/L (6-50); Albumin Level 4.8 g/dL (3.5-5.1); Alkaline Phosphatase 58 U/L (38-126); Anion Gap 10 mmol/L (4-12); Aspartate Amino Transferase 36 U/L (17-59); Bilirubin,Total 0.8 mg/dL (0.2-1.3); Blood Urea Nitrogen 21 mg/dL (9-20); Calcium 9.8 mg/dL (8.4-10.2); Carbon Dioxide 24 mmol/L (22-30); Chloride 109 mmol/L (98-107); Estimated CRCL calculation 72 ml/min; Estimated Glomerular Filt Rate > 60; Glucose 110 mg/dL (65-110); Potassium 4.1 mmol/L (3.4-5.0); Sodium 143 mmol/L (137-145)
[2024-12-27 18:07] LABS: Magnesium 1.8 mg/dL (1.6-2.3)
[2024-12-27 18:15] LABS: INR 1.1; NT Pro B Type Natriuretic Pept 28 pg/mL (19.9-100); Prothrombin Time 15.1 Seconds (11.1-14.7)
[2024-12-27 18:16] LABS: Partial Thromboplastin Time 28.1 Seconds (22.3-36.8)
[2024-12-27 18:20] LABS: Troponin I < 0.012 ng/mL (0.000-0.034)
[2024-12-27 18:38] LABS: Influenza A QL RT-PCR Negative (Negative); Influenza B QL RT-PCR Negative (Negative); RSV RNA, RT-PCR Negative (Negative); SARS-CoV-2 RNA PCR Negative (Negative)
--- OUTSIDE RECORDS SUMMARY | 2024-12-27 19:21 | XMS_ITS | Referral Summary ---
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 Gender Identity Not on file Sexual Orientation Not on file Last Filed Vital Signs Vital Sign Reading Time Taken Comments Blood Pressure 158/94 08/19/2022 9:39 AM SOCIAL SCIENCES INSTRUCTOR Pulse 72 08/19/2022 9:39 AM SOCIAL SCIENCES INSTRUCTOR Temperature 36.8 C (98.3 F) 07/10/2022 9:09 AM SOCIAL SCIENCES INSTRUCTOR Respiratory Rate 16 07/10/2022 9:09 AM SOCIAL SCIENCES INSTRUCTOR Oxygen Saturation 97% 07/10/2022 9:09 AM SOCIAL SCIENCES INSTRUCTOR Inhaled Oxygen Concentration - - Weight 104.2 kg (229 lb 12.8 oz) 03/21/2023 8:34 AM CDT Height 185.4 cm (6' 1 ) 03/21/2023 8:34 AM CDT Body Mass Index 30.32 03/21/2023 8:34 AM CDT Plan of Treatment Not on file Medical Devices Implanted Type Area Concrete Saw Operator Device Identifier Shelf Expiration Date Model / Serial / Lot Bmp Infuse Sm [id number] - [id number] Implanted:Qty: 1 on 12/03/2021 by Gabriel Haddad MD at [facility] N/A: Spine Lumbar Medtronic Inc [id number] 04/08/2023 [id number] / / [id number] [employer] [id number] [place] Od7.5 Mm L50 Mm Polyaxial Spine Screw Bone - [id number] Implanted:Qty: 5 on 12/03/2021 by Gabriel Haddad MD at [facility] N/A: Spine Lumbar Tsaile Spine [id number] / / Spineart Usa Inc Sjt-Ls 50 25-S Screw Spn Pedicle Sld 5x25mm - [id number] Implanted:Qty: 2 on 12/03/2021 by Gabriel Haddad MD at [facility] N/A: Spine Lumbar SPINEART USA INC 02/04/2029 SJT-LS 50 25-S / / [id number] Gel 10cc Demineralized Bone Matrix - [id number] Implanted:Qty: 1 on 12/03/2021 by Gabriel Haddad MD at [facility] N/A: Spine Lumbar Aditi Spine 02/16/2024 [id number] / / [id number] Allosource Crushed Fresh Frozen Cancellous 1-4mm Graft 15ml Bone [id number] - [id number] Implanted:Qty: 1 on 12/03/2021 by Gabriel Haddad MD at [facility] N/A: Spine Lumbar Allosource 12/18/2022 [id number] / / [id number] Spineart Usa Inc Sca-Lm 15 14-S Cage Spn Med 15d Alif Scarlet 14mm - [id number] Implanted:Qty: 1 on 12/03/2021 by Gabriel Haddad MD at [facility] N/A: Spine Lumbar SPINEART USA INC 01/01/2029 SCA-LM 15 14-S / / [id number] Medtronic Inc Infuse 20ga 2x1in Vial Absorbable Syringe Needle Medium Graft 5.6 [id number] - [id number] Implanted:Qty: 1 on 12/03/2021 by Gabriel Haddad MD at [facility] N/A: Spine Lumbar Medtronic Inc [id number] 04/08/2023 [id number] / / [id number] Allosource Crushed Chip Frozen Graft 60ml Bone Cancellous [id number] - [id number] Implanted:Qty: 1 on 12/03/2021 by Gabriel Haddad MD at [facility] N/A: Spine Lumbar Allosource 03/25/2026 [id number] / / [id number] Tsaile Spine Trio 6mm 70mm Union Thoracolumbar Eliezer Spinal [id number] - [id number] Implanted:Qty: 2 on 12/03/2021 by Gabriel Haddad MD at [facility] N/A: Spine Lumbar Aditi Spine [id number] / / Aditi Spine [place] Spine Screw Set Alegria 2901-62438 - [id number] Implanted:Qty: 6 on 12/03/2021 by Gabriel Haddad MD at [facility] N/A: Spine Lumbar Aditi Spine [id number] / / Tsaile Spine [place] Od7.5 Mm L45 Mm Polyaxial Spine Screw Bone 2911-04512 - [id number] Implanted:Qty: 1 on 12/03/2021 by Gabriel Haddad MD at [facility] N/A: Spine Lumbar Aditi Spine [id number] / / Procedures Procedure Name Priority Date/Time Associated Diagnosis Comments EGFR Routine 12/08/2021 3:26 AM CDT LIPID PANEL STAT 12/03/2021 6:05 PM CDT POCT HEMOGLOBIN A1C Routine 11/09/2021 1 :52 PM CDT from Last 3 Months or Most Recently Relevant to Health Maintenance Results * (ABNORMAL) eGFR (12/08/2021 3:26 AM CDT) eGFR 73(L) 90 - 130 mL/min/1. 73 m2 [facility] Comment: Interpretive Data Reference Interval Normal [...] NP LAB BLOOD ORDERABLES Final Re sult [facility] Department [place] [address] * (ABNORMAL) Lipid panel (12/03/2021 6:05 PM CDT) Cholesterol 156 30 - 199 mg/dL [facility] Comment: Interpretive Data Ages < or = [...] revised on 2018. Triglycerides 419(H) <=149 mg/dL [facility] Comment: Interpretive Data Ages < or = [...] revised on 2018. HDL 25(L) >=40 mg/dL [facility] Comment: Interpretive Data Ages < or = [...] on 2018. LDL, calculated See Comment <=129 [facility] Comment: Unable to calculate LDL due to [...] revised on 2018. Non-HDL Cholesterol 131 mg/dL [facility] Comment: Interpretive Data Ages < or = [...] last revised on 2018. Chol/HDL ratio 6 [facility] Blood 12/03/2021 6:05 PM CDT 12/03/2021 6:26 PM CDT us Gabriel Haddad MD LAB BLOOD ORDERABLES Final Result [facility] Department [place] [address] * (ABNORMAL) POCT hemoglobin A1c (11/09/2021 1:52 PM CDT) Hgb A1C, POC 5.8(H) 4.0 - 5.6 % [facility] Est Average Gluc POC 120 mg/dL [facility] Comment: The ADA recommends reporting an estimated Average Glucose (eAG) with all Hemoglobin A1c results using the equation derived from a study of 507 normal and diabetic adults. Minority populations were underrepresented and children were not included. (Diabetes Care 31:7368-7150, 2008). The eAG is not equivalent to a fasting glucose. Blood 11/09/2021 1:52 PM CDT 11/09/2021 1:52 PM CDT us Gabriel Haddad MD POINT OF CARE TEST O RDERABLES Final Result [facility] [place] [address] from Last 3 Months or Most Recently Relevant to Health Maintenance Insurance [facility] Advance Directives For more information, please contact: [phone] * Full Code (Latest Code Status on File) Date Activated Date Inactivated Comments 12/03/2021 8:47 PM 12/08/2021 7:50 PM Care Teams Epic Ambulatory Specialists Relationship Specialty Start Date End Date Mike Early MD PCP - General Family Medicine 06/08/22
--- OUTSIDE RECORDS SUMMARY | 2024-12-27 19:21 | XMS_ITS | Clinical Summary ---
Author Organization [facility] Address [address] [place] [id number] Care Team Providers Care Title Vehicle Service Attendant Name Role Phone Mike Early MD Primary Care Provider [phone] Allergies No known active allergies Medications atorvastatin [...] (10/14/2021): Added automatically from request for surgery [id number] Spinal stenosis, lumbar isaias on, with neurogenic claudication 10/14/2021 Overview (10/14/2021): Added automatically from request for surgery [id number] Immunizations Immunization Administration Dates Next Due Influenza, [...] on file 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 Gender Identity Not on file Sexual Orientation Not on file Obstetrics History Last Filed Vital Signs Vital Sign Reading Time Taken Comments Blood Pressure 158/94 08/19/2022 9:39 AM NUCLEAR SCIENTIST Pulse 72 08/19/2022 9:39 AM NUCLEAR SCIENTIST Temperature 36.8 C (98.3 F) 07/10/2022 9:09 AM NUCLEAR SCIENTIST Respiratory Rate 16 07/10/2022 9:09 AM NUCLEAR SCIENTIST Oxygen Saturation 97% 07/10/2022 9:09 AM NUCLEAR SCIENTIST Inhaled Oxygen Concentration - - Weight 104.2 [...] 12/15/2028 12/15/2018 Medical Devices Implanted Type Area Glass Furnace Tender Device Identifier Shelf Expiration Date Model / Serial / Lot Bmp Infuse Sm [id number] - [id number] Implanted:Qty: 1 on 12/03/2021 by Gabriel Haddad MD at [facility] N/A: Spine Lumbar Medtronic Inc [id number] 04/08/2023 [id number] / / [id number] [address] [id number] [place] Od7.5 Mm L50 Mm Polyaxial Spine Screw Bone - [id number] Implanted:Qty: 5 on 12/03/2021 by Gabriel Haddad MD at [facility] N/A: Spine Lumbar Aditi Spine [id number] / / Spineart Usa Inc Sjt-Ls 50 25-S Screw Spn Pedicle Sld 5x25mm - [id number] Implanted:Qty: 2 on 12/03/2021 by Gabriel Haddad MD at [facility] N/A: Spine Lumbar SPINEART USA INC 02/04/2029 SJT-LS 50 25-S / / [id number] 10cc Demineralized Bone Matrix - [id number] Implanted:Qty: 1 on 12/03/2021 by Gabriel Haddad MD at [facility] N/A: Spine Lumbar [place] Spine 02/16/2024 [id number] / / [id number] Allosource Crushed Fresh Frozen Cancellous 1-4mm Graft 15ml Bone [id number] - [id number] Implanted:Qty: 1 on 12/03/2021 by Gabriel Haddad MD at [facility] N/A: Spine Lumbar Allosource 12/18/2022 [id number] / / [id number] Spineart Usa Inc Sca-Lm 15 14-S Cage Spn Med 15d Alif Scarlet 14mm - [id number] Implanted:Qty: 1 on 12/03/2021 by Gabriel Haddad MD at [facility] N/A: Spine Lumbar SPINEART USA INC 01/01/2029 SCA-LM 15 14-S / / [id number] Medtronic Inc Infuse 20ga 2x1in Vial Absorbable Syringe Needle Medium Graft 5.6 [id number] - [id number] Implanted:Qty: 1 on 12/03/2021 by Gabriel Haddad MD at [facility] N/A: Spine Lumbar Medtronic Inc [id number] 04/08/2023 [id number] / / [id number] Allosource Crushed Chip Frozen Graft 60ml Bone Cancellous [id number] - [id number] Implanted:Qty: 1 on 12/03/2021 by Gabriel Haddad MD at [facility] N/A: Spine Lumbar Allosource 03/25/2026 [id number] / / [id number] Aditi Spine Trio 6mm 70mm Union Thoracolumbar Eliezer Spinal [id number] - [id number] Implanted:Qty: 2 on 12/03/2021 by Gabriel Haddad MD at [facility] N/A: Spine Lumbar Aditi Spine [id number] / / Aditi Spine [place]ckard Spine Screw Set Alegria 2901-27200 - [id number] Implanted:Qty: 6 on 12/03/2021 by Gabriel Haddad MD at [facility] N/A: Spine Lumbar [place] Spine [id number] / / [place] Spine [place]ckard Od7.5 Mm L45 Mm Polyaxial Spine Screw Bone 2911-07236 - [id number] Implanted:Qty: 1 on 12/03/2021 by Gabriel Haddad MD at [facility] N/A: Spine Lumbar [place] Spine 2911-23370 / / Procedures Procedure Name Priority Date/Time Associated Diagnosis Comments EGFR Routine 12/08/2021 3:26 AM CDT LIPID PANEL STAT 12/03/2021 6:05 PM CDT POCT HEMOGLOBIN A1C Routine 11/09/2021 1 :52 PM CDT from Last 3 Months or Most Recently Relevant to Health Maintenance Results * (ABNORMAL) eGFR (12/08/2021 3:26 AM CDT) eGFR 73(L) 90 - 130 mL/min/1. 73 m2 [facility] Comment: Interpretive Data Reference Interval Normal [...] NP LAB BLOOD ORDERABLES Final Re sult [facility] Department [place] [address] * (ABNORMAL) Lipid panel (12/03/2021 6:05 PM CDT) Cholesterol 156 30 - 199 mg/dL [facility] Comment: Interpretive Data Ages < or = [...] on 2018. Triglycerides 419(H) <=149 mg/dL [facility] Comment: Interpretive Data Ages < or = [...] on 2018. HDL 25(L) >=40 mg/dL [facility] Comment: Interpretive Data Ages < or = [...] on 2018. LDL, calculated See Comment <=129 [facility] Comment: Unable to calculate LDL due [...] on 2018. Non-HDL Cholesterol 131 mg/dL [facility] Comment: Interpretive Data Ages < or = [...] last revised on 2018. Chol/HDL ratio 6 [facility] Blood 12/03/2021 6:05 PM CDT 12/03/2021 6:26 PM CDT us Gabriel Haddad MD LAB BLOOD ORDERABLES Final Result [facility] Department [place] [address] * (ABNORMAL) POCT hemoglobin A1c (11/09/2021 1:52 [...] and children were not included. (Diabetes Care 31:5666-1873, 2008). The eAG is not equivalent to a fasting glucose. Blood 11/09/2021 1:52 PM CDT 11/09/2021 1:52 PM CDT us Gabriel Haddad MD POINT OF CARE TEST O RDERABLES Final Result [facility] Department [place] [address] from Last 3 Months or Most Recently Relevant to Health Maintenance Insurance [facility] Advance Directives For more information, please contact: [phone] * Full Code (Latest Code Status on File) Date Activated Date Inactivated Comments 12/03/2021 8:47 PM 12/08/2021 7:50 PM Care Teams Title Vehicle Service Attendant Relationship Specialty Start Date End Date Mike Early MD PCP - General Family Medicine 06/08/22
[2024-12-27] MEDS: HEPARIN SOD/D5W 100 UNITS/ML 25,000 UNITS/250 ML BAG 15 UNITS IV CONT (20:04)
[2024-12-27] MEDS: HEPARIN SODIUM 5,000 UNITS/ML VIAL 7000 UNITS IV PUSH (20:04)
--- NOTE | 2024-12-27 20:44 | PM.IMHP ---
H&P: HPI History of Present Illness Date/Time: 12/27/24 20:44 Chief Complaint: Dyspnea, Pulmonary embolism Narrative: This is a 64-year-old male patient with a past medical history of hypertension, obstructive sleep apnea, anxiety depression obesity was admitted to the hospital due to discovery of pulmonary embolus and left lower extremity DVT. Patient reports symptoms of left leg pain and dyspnea on exertion ongoing for the past 2-3 weeks. He denies history of prior blood clots but states his father had blood clots in his legs in the past. Patient states for the past few weeks he has had tachypnea and shortness of breath after mild exertion like walking across the room, climbing a couple steps or working in the yard. He noted decreased energy levels as well. Patient was at work today and his coworkers encouraged him to leave and go to ER for evaluation. Labs unremarkable with special attention to troponin and BNP. Patient afebrile. Oxygen applied at 2 LPM in ER due to desaturation to mid/upper 80s with minor exertion. Patient states history of pre-diabetes but hemoglobin A1c today is 7.2 indicating Type 2 diabetes. Will hold metformin and use SSI with fingerstick glucose checks. Diabetic diet ordered. Review of Systems Review of Systems: All systems reviewed & are unremarkable except as noted in HPI and below PMFSH Past Medical History Medical History Anxiety Anxiety disorder, unspecified Obesity (BMI 30-39.9) Cleft lip Essential (primary) hypertension Major depressive disorder, single episode, unspecified Mixed hyperlipidemia Obstructive sleep apnea (adult) (pediatric) Surgical History Surgical History History of eye surgery History of hernia surgery S/P lumbar fusion H/O colonoscopy (~06/2019) Hx of tonsillectomy Family History Family History Mother Depression Family history of glaucoma Family history of Parkinson's disease Father Family history of cardiovascular disease Malignant neoplasm of prostate Hypertension DVT (deep venous thrombosis) Father DVT (deep venous thrombosis) Other Cerebrovascular accident Diabetes mellitus Social History Social History Smoking packs per day: 1 Smoking cigarettes per day: 20.0 Smoking status: Former smoker Tobacco type: cigarettes Smoking end date: 01/06/05 Alcohol intake: never Substance use: never Substance use type: does not use Do You Feel Safe in your Home?: Yes Lack of Transportation: No Lack of Food: Never True Current Housing: I Have Housing Concerned About Future Housing: No Difficulty Paying Gas/Electric Bills: No Difficulty Paying for Meds: No Currently Unemployed: No Education: Master's Degree or Higher Difficulty w/ Childcare or Family Care: No Living arrangements: with family Spiritual care concerns: No Meds Home Medications and Allergies Home Medications ?Medication ?Instructions ?Recorded ?Confirmed ?Type travoprost 0.004 % eye drops 1 drop ophthalmic (eye) QPM 12/28/19 12/27/24 History trazodone 50 mg tablet See Rx Instructions .Route 10/18/23 12/27/24 Rx .COMPLEX #90 tabs bupropion HCl 300 mg 24 hr tablet, 300 mg PO QAM #90 tabs 01/10/24 12/27/24 Rx extended release (Wellbutrin XL) vilazodone 40 mg tablet 40 mg PO DAILY #90 tabs 05/30/24 12/27/24 Rx atorvastatin 40 mg tablet See Rx Instructions .Route 09/04/24 12/27/24 Rx .COMPLEX #90 tabs metformin 500 mg tablet,extended See Rx Instructions .Route 09/04/24 12/27/24 Rx release 24 hr .COMPLEX #360 tabs aripiprazole 2 mg tablet 2 mg PO QHS #30 tabs 11/07/24 12/27/24 Rx fenofibrate 160 mg tablet See Rx Instructions .Route 12/21/24 12/27/24 Rx .COMPLEX #90 tabs hydroxyzine HCl 10 mg tablet 10 mg PO TID PRN anxiety #30 tabs 12/21/24 12/27/24 Rx omeprazole 20 mg capsule,delayed 20 mg PO DAILY #30 caps 12/21/24 12/27/24 Rx release acetaminophen 500 mg tablet 1,000 mg PO Q6H PRN pain 12/27/24 12/27/24 History (Acetaminophen Pain Relief) Allergies Allergy/AdvReac Type Severity Reaction Status Date / Time No Known Allergies Allergy Verified 12/27/24 16:13 Vital Signs Vital Signs - 24 hr 12/27/24 16:13 12/27/24 20:08 Temperature 36.6 C Pulse Rate 77 Respiratory Rate 16 Blood Pressure 158/90 H Pulse Oximetry 95 94 Oxygen Delivery Room Air Nasal Cannula Oxygen Flow Rate 2 Exam Narrative: GENERAL: Well-appearing, well-nourished, and in no acute distress. HEAD: Normocephalic, atraumatic. ENT: Mucous membranes moist. NECK: Supple. CHEST: Clear to auscultation. No respiratory distress. HEART: Regular rate and rhythm. Normal peripheral pulses. ABDOMEN: Soft, nontender, nondistended. EXTREMITIES: Normal range of motion. Mild left lower extremity tenderness and minimal swelling SKIN: Warm, dry, no rash. NEURO: Alert and oriented x3. PSYCH: Normal mood and affect. H&P: Results Labs Labs: Short CBC 12/27/24 Range/Units 17:51 WBC 7.9 (4.5-10.0) K/mm3 Hgb 15.3 (14.0-18.0) g/dL Hct 47.9 (42.0-52.0) % Plt Count 252 (150-375) k/mm3 BMP 12/27/24 17:51 Sodium 143 Potassium 4.1 Chloride 109 H Carbon Dioxide 24 BUN 21 H Creatinine 1.19 Glucose 110 Calcium 9.8 Cardiac Enzymes 12/27/24 Range/Units 17:51 Troponin I < 0.012 (0.000-0.034) ng/mL Liver Function 12/27/24 Range/Units 17:51 Total Bilirubin 0.8 (0.2-1.3) mg/dL AST 36 (17-59) U/L ALT 33 (6-50) U/L Alkaline Phosphatase 58 (38-126) U/L Albumin 4.8 (3.5-5.1) g/dL Pulse Oximetry SpO2 results: 94-95% on nasal cannula 2 lpm Attestation: I personally reviewed and interpreted this pulse oximetry as follows: Interpretation: Patient continues to require supplemental oxygen at this time ECG Attestation: I personally reviewed and interpreted this ECG as follows: ECG completion date: 12/27/24 ECG completion time: 17:42 Prior ECG tracings: available for review Interpretation: Sinus rhythm rate of 71 TX interval 163 QRS duration 97 QTC 408 QRS axis 13? no STEMI or acute ischemic changes Imaging CT scan - chest: Radiologist's impression: EXAMINATION: CTA chest PE protocol DATE: 12/27/2024 18:50 CDT INDICATION: Shortness of breath with exertion TECHNIQUE: Computed tomographic angiography (CTA) of the chest was performed with 100 mL Omnipaque-350 intravenous contrast. The dose-length product was 771.78 mGy-cm. Maximum intensity projection 3D-reconstructions of the aorta and other arteries were constructed by the technologist on a separate workstation. COMPARISON: None. FINDINGS/OBSERVATIONS: PULMONARY ARTERIES: Multiple filling defects are identified within the lobar, segmental and subsegmental branches. Within the left side: Within the left apical posterior and anterior branch as well as within the interlobar artery, the lingular branches as well as the left lower lobe branches. Within the right side: Within the apical branch of the right upper lobe, extending into the interlobar artery and into the right middle lobe branches. Additional filling defects are present within the right lower lobe branches, specifically within the posterior basal, lateral basal and anterobasal. A possible filling defect is identified within the confluence of the left brachiocephalic vein, versus a filling defect secondary to flow differential. THORACIC AORTA: No aneurysmal dilatation or dissection is present. The great vessels are intact LUNGS: Patchy groundglass opacification detected bilaterally, findings suggesting pulmonary edema. MEDIASTINUM: No morphologically suspicious or pathologically enlarged lymph nodes are identified within the mediastinum or bilateral axilla. BONES OF THE CHEST: No acute fracture. No significant degenerative disease. No lytic or blastic lesions. HEART: Flattening of the interventricular septum is present. The RV to LV ratio is 1.2, consistent with right heart strain. The heart is enlarged, without pericardial effusion. IMPRESSION: Extensive bilateral pulmonary embolus within the lobar, segmental and subsegmental branches. Additional findings suggesting right heart strain, as detailed above. These findings were discussed with Bethany Raymond at 7pm on 12/27/2024 Reviewed, dictated and finalized at location A. Venous US: Radiologist's impression: EXAMINATION: US venous doppler [facility] DATE: 12/27/2024 18:58 INDICATION: Pain and swelling TECHNIQUE: Grayscale ultrasound images without and with compression and Doppler ultrasound images of the left lower extremity veins were obtained. COMPARISON: None. FINDINGS: The visualized portions of left common femoral vein, profunda (deep) femoral vein, femoral vein and greater saphenous vein outflow are patent. Noncompressibility and absence of flow is identified within the left popliteal, posterior tibial, peroneal and gastrocnemius veins. IMPRESSION: Deep venous thrombosis from the level of the left popliteal vein peripherally to the gastrocnemius vein. Given the clot burden of pulmonary emboli, would recommend a right lower extremity duplex ultrasound as well Reviewed, dictated and finalized at location A. EXAMINATION: US venous doppler LE RT DATE: 12/27/2024 21:00 INDICATION: Bilateral pulmonary emboli with extensive left lower extremity DVT TECHNIQUE: Grayscale ultrasound images without and with compression and Doppler ultrasound images of the right lower extremity veins were obtained. COMPARISON: None. FINDINGS: The visualized portions of right common femoral vein, profunda (deep) femoral vein, femoral vein, popliteal vein, peroneal veins, posterior tibial veins, and greater saphenous vein outflow are patent. IMPRESSION: 1. No deep venous thrombosis within the right lower extremity, as detailed above. Reviewed, dictated and finalized at location A. Assessment and Plan Assessment and plan (1) Pulmonary embolism on left: Code(s): I26.99 - Other pulmonary embolism without acute cor pulmonale Status: Acute Assessment and Plan: -Large bilateral clot burden noted with CT findings of RV/LV ratio 1.2 indicating right heart strain -Symptoms ongoing for 2-3 weeks -Family history DVT--patient's father had leg clots -Dyspnea on exertion for a couple weeks, symptoms not improving -Troponin and BNP normal -Left leg ache for about 3 weeks, US positive for popliteal and gastrocnemius -Suspect genetic cause of clotting like Factor V Lieden, etc. -Hypercoagulability labs drawn/sent, results will be interpreted by primary care provider (2) DVT of lower limb, acute: Qualifiers: Affected thrombotic vein of extremity: popliteal Laterality: left Qualified Code(s): I82.432 - Acute embolism and thrombosis of left popliteal vein Code(s): I82.409 - Acute embolism and thrombosis of unspecified deep veins of unspecified lower extremity Status: Acute Assessment and Plan: -See above (3) Essential (primary) hypertension: Code(s): I10 - Essential (primary) hypertension Status: Acute Assessment and Plan: -Blood pressure reviewed and stable -Continue home medications as appropriate (4) Obstructive sleep apnea (adult) (pediatric): Code(s): G47.33 - Obstructive sleep apnea (adult) (pediatric) Status: Acute Assessment and Plan: -Home CPAP or AutoPAP while in hospital, bleed in oxygen to maintain saturation 92% or higher (5) Impaired fasting glucose: Code(s): R73.01 - Impaired fasting glucose Status: Acute Assessment and Plan: -Hemoglobin A1c added, result 7.2 -Add ACHS fingerstick glucose and SSI -Hold metformin while hospitalized (6) Anxiety disorder, unspecified: Code(s): F41.9 - Anxiety disorder, unspecified Status: Acute Assessment and Plan: -Continue home medications including hydroxyzine and aripiprazole Quality VTE Prophylaxis VTE prophylaxis: pharmacologic ordered (heparin drip) If No VTE Prophylaxis Answer both mechanical and pharmacologic: Reason no mechanical VTE proph: medical contraindication (known DVT left leg) Time spent on this patient 120 minutes including 50 minutes critical care Due to a high probability of clinically significant, life threatening deterioration, the patient required my highest level of preparedness to intervene emergently and I personally spent this critical care time directly and personally managing the patient. This critical care time included obtaining a history; examining the patient; pulse oximetry; ordering and review of studies; arranging urgent treatment with development of a management plan; evaluation of patient's response to treatment; frequent reassessment; and discussions with other providers. It was exclusive of separately billable procedures and treating other patients and teaching time. Please see Assessment and Plan section and the rest of the note for further information on patient assessment and treatment. Critical Care time: 50 minutes Hospitalist MIPS Advance Care Plan I have confirmed that the patient's Advanced Care Plan is present, code status is documented, or surrogate decision maker is listed in patient medical record.: Yes Medication Reconciliation I have utilized all available resources to obtain, update and review the patients current medications (includes all prescriptions, OTC, herbals, cannabis, and nutritional supplements).: Yes
[2024-12-27 21:00] LABS: Cholesterol 162 mg/dL (0-200); HDL Direct 44 mg/dL; Triglycerides 220 mg/dL (<150)
[2024-12-27 21:03] LABS: Hemoglobin A1C 7.2 % (<5.7)
[2024-12-27 21:11] LABS: LDL Cholesterol Direct 87 mg/dL
--- NOTE | 2024-12-27 22:16 | ADMGEN ---
This patient, Cornelius Payne, was admitted to IMU Room 210-01. Patient/family oriented to hospital policies and general routines including ID bracelet, bed and alarms, visiting hours, pain management, procedures, bathroom and other care routines, personal items, smoking policy, room service/diet, and visiting hours. Information on how to activate the Rapid Response Team has been discussed. Patient/Family are encouraged to report perceived risks to care and to ask questions if they do not understand what they are told or what they should do.
[2024-12-27 22:32] LABS: Glucose Point of Care 121 mg/dl (65-105)
[2024-12-28] VITALS (20 sets, daily range): BP systolic 128–174; BP diastolic 82–91; PULSE 68–93; RESP 17–20; TEMP 36.5–36.6; O2SAT 93–98
--- NOTE | 2024-12-28 | ECHO_ITS ---
Patient Info Name: Cornelius Payne Age: 64 years : 1960 Gender: Male Ht: 71 in Wt: 240 lbs BSA: 2.37 m2 HR: 70 bpm BP: 161 / 90 mmHg Heart Rhythm: Sinus Rhythm Technical Quality: Fair Exam Date: 12/28/2024 10:22 AM Patient Status: I Admit Date: 12/28/2024 Exam Type: CA echo doppler w bubble study Complete two-dimensional, color flow and Doppler transthoracic echocardiogram is performed with agitated saline. Staff Referring Physician: Anurag Bridges [employer] Management Supervisor: Violette Cooper Attending Provider: Emily Mathis MD Contrast/Agitated Saline Contrast/Ag. Saline: Agitated Saline Amount: 8.00 ml Summary 1. Left ventricular chamber dimension is normal. 2. Left ventricular systolic function is normal, estimated at 60-65. 3. There is mild concentric increased left ventricular wall thickness. 4. The left ventricular diastolic function is grade I diastolic dysfunction. 5. E/e' 8 is minimally elevated. 6. There is trace mitral valve regurgitation. 7. There is mild tricuspid valve regurgitation. 8. Moderate pulmonary hypertension, estimated pulmonary arterial systolic pressure is 52 mmHg. 9. There is trace pulmonic regurgitation. Left Ventricle E/e' 8 is minimally elevated. Left ventricular chamber dimension is normal. Left ventricular systolic function is normal, estimated at 60-65. There is mild concentric increased left ventricular wall thickness. The left ventricular diastolic function is grade I diastolic dysfunction. Right Ventricle Right ventricular chamber dimension is normal. Right ventricular systolic function is normal and with normal TAPSE 2.4 cm. Left Atria Left atrial chamber dimension is normal. Right Atria Right atrial chamber dimension is normal. Atrial Septum Intact interatrial septum visualized by 2D and agitated saline imaging. Agitated saline injection with valsalva maneuver opacified right side cardiac chambers without shunt to left side cardiac chambers. Aortic Valve The aortic valve is trileaflet. There is no aortic valve stenosis. There is no aortic valve regurgitation. Pulmonic Valve There is trace pulmonic regurgitation. Mitral Valve There is no mitral valve stenosis. There is trace mitral valve regurgitation. Tricuspid Valve There is mild tricuspid valve regurgitation. Moderate pulmonary hypertension, estimated pulmonary arterial systolic pressure is 52 mmHg. Pericardium/Pleural There is no pericardial effusion. Inferior Vena Cava Normal inferior vena cava with >50% collapse upon inspiration consistent with normal right atrial pressure, 5 mmHg. Aorta The aortic root size at the sinus of Valsalva is normal. Left Ventricular Outflow Tract Name Value Normal LVOT 2D LVOT Diameter 2.1 cm LVOT Doppler LVOT Peak Velocity 90 cm/s LVOT Peak Gradient 3 mmHg LVOT Mean Gradient 2 mmHg LVOT VTI 17 cm LVOT VTI/AV VTI Ratio 0.8 LVOT Stroke Volume 59 ml LVOT CO 4.1 l/min LVOT CI 1.7 l/min/m2 Pulmonic Valve Name Value Normal RVOT Doppler RVOT Peak Velocity 63 cm/s RVOT Peak Gradient 2 mmHg PV Doppler PV Peak Velocity 100 cm/s PV Peak Gradient 4 mmHg Mitral Valve Name Value Normal MV Diastolic Function MV E Peak Velocity 59 cm/s MV A Peak Velocity 79 cm/s MV E/A 0.8 MV Decel Time (PW) 268 ms MV Annular TDI MV E/e' (Septal) 9.3 MV E/e' (Lateral) 8.5 MV E/e' (Average) 8.9 Tricuspid Valve Name Value Normal TV Regurgitation Doppler TR Peak Velocity 344 cm/s TR Peak Gradient 47 mmHg Estimated PAP/RSVP RA Pressure 5 mmHg <=5 PA Systolic Pressure 52 mmHg <36 RV Systolic Pressure 52 mmHg <36 TV Annular TDI TV Lateral Ranjana s' Velocity 11.4 cm/s >=9.5 Aortic Valve Name Value Normal AV Doppler AV Peak Velocity 118 cm/s AV Peak Gradient 6 mmHg AV Mean Gradient 4 mmHg AV VTI 22 cm AV Area (Cont Eq VTI) 2.7 cm2 >=3.0 AV Area (Cont Eq Ezra) 2.6 cm2 AV DI (Ezra) 0.76 AV Regurgitation 2D LVOT Area 3.4 cm2 Ventricles Name Value Normal LV Dimensions 2D/MM IVS Diastolic Thickness (2D) 1.2 cm 0.6-1.0 LVID Diastole (2D) 4.6 cm 4.2-5.8 LVIW Diastolic Thickness (2D) 1.1 cm 0.6-1.0 LVID Systole (2D) 3.2 cm 2.5-4.0 LVOT Diameter 2.1 cm LV Mass (2D Cubed) 193.64 g 88.00-224.00 LV Mass Index (2D Cubed) 82 g/m2 49-115 Relative Wall Thickness (2D) 0.46 <=0.42 LV Fractional Shortening/Ejection Fraction 2D/MM LV Fractional Shortening (2D) 31 % 25-43 LV EF (2D Teichholz) 59 % LV Diastolic Volume (4C MOD) 126 ml LV EF (4C MOD) 60 % LV Diastolic Volume (2C MOD) 128 ml LV EF (2C MOD) 66 % LV Diastolic Volume (BP MOD) 129 ml 62-150 LV Diastolic Volume Index (BP MOD) 54 ml/m2 34-74 LV Systolic Volume (BP MOD) 47 ml 21-61 LV Systolic Volume Index (BP MOD) 20 ml/m2 11-31 LV EF (BP MOD) 64 % 52-72 LV Diastolic Length (4C) 8.4 cm LV Systolic Length (4C) 7.0 cm LV Stroke Volume (4C MOD) 76 ml Atria Name Value Normal LA Dimensions LA Volume (4C A-L) 49 ml LA Volume (BP A-L) 58 ml RA Dimensions RA Systolic Major [place] Length (4C) 5.7 cm 2.1-2.7 RA Area (4C) 18.5 cm2 <=18.0 Report Signatures
[2024-12-28 02:02] LABS: Basophils Percent Auto 0.5 % (0.2-1.2); Eosinophils Absolute Auto 0.7 K/mm3 (0-0.3); Eosinophils Percent Auto 9.9 % (0-4.4); Hematocrit 44.4 % (42.0-52.0); Hemoglobin 14.2 g/dL (14.0-18.0); Immature Granulocyte Absolute 0.04 K/mm3 (0.00-0.031); Immature Granulocyte Percent A 0.5 % (0-0.5); Lymphocytes Absolute Auto 1.96 K/mm3 (0.9-3.2); Lymphocytes Percent Auto 26.6 % (18.3-44.2); Mean Corpuscular Hemoglobin 27.6 pg (26-34); Mean Corpuscular Volume 86.2 fl (80-100); Mean Platelet Volume 10.1 fl (7.4-10.4); Monocytes Absolute Auto 0.6 K/mm3 (0.1-0.6); Monocytes Percent Auto 7.5 % (2.6-8.5); Platelet Count Result 233 k/mm3 (150-375); Red Blood Count 5.15 M/mm3 (4.6-6.20); Red Cell Distribution Width 13.3 % (11.5-14.5); White Blood Count 7.4 K/mm3 (4.5-10.0)
[2024-12-28 02:18] LABS: Alanine Aminotransferase 31 U/L (6-50); Albumin Level 4.3 g/dL (3.5-5.1); Alkaline Phosphatase 56 U/L (38-126); Anion Gap 10 mmol/L (4-12); Aspartate Amino Transferase 34 U/L (17-59); Bilirubin,Total 0.6 mg/dL (0.2-1.3); Blood Urea Nitrogen 21 mg/dL (9-20); Calcium 9.2 mg/dL (8.4-10.2); Carbon Dioxide 23 mmol/L (22-30); Chloride 108 mmol/L (98-107); Estimated CRCL calculation 80 ml/min; Estimated Glomerular Filt Rate > 60; Glucose 207 mg/dL (65-110); Potassium 3.7 mmol/L (3.4-5.0); Sodium 141 mmol/L (137-145)
[2024-12-28] MEDS: HEPARIN SODIUM 5,000 UNITS/ML VIAL 3500 UNITS IV PUSH (02:23)
[2024-12-28 02:30] LABS: NT Pro B Type Natriuretic Pept < 20 pg/mL (19.9-100); Troponin I < 0.012 ng/mL (0.000-0.034)
[2024-12-28 07:51] LABS: Glucose Point of Care 155 mg/dl (65-105)
--- NOTE | 2024-12-28 07:55 | P.PNIM_ITS ---
Progress Note: A&P Assessment and Plan (1) Pulmonary embolism on left: Code(s): I26.99 - Other pulmonary embolism without acute cor pulmonale Status: Acute Assessment and Plan: * Large bilateral clot burden noted with CT findings of RV/LV ratio 1.2 indicating right heart strain * Symptoms ongoing for 2-3 weeks, Left leg ache for about 3 weeks * Family history DVT--patient's father had leg clots * Suspect genetic cause of clotting like Factor V Lieden, etc. * Hypercoagulability labs drawn/sent, results will be interpreted by primary care provider * Dyspnea on exertion for a couple weeks, symptoms not improving * Troponin and BNP normal * US venous doppler LE LT: Deep venous thrombosis from the level of the left popliteal vein peripherally to the gastrocnemius vein. * US venous doppler LE RT: No deep venous thrombosis within the right lower extremity * Heparin Drip now, switch to Eliquis 10mg BID for 7 days starting tonight * Echocardiogram ordered, pending (2) DVT of lower limb, acute: Qualifiers: Affected thrombotic vein of extremity: popliteal Laterality: left Qualified Code(s): I82.432 - Acute embolism and thrombosis of left popliteal vein Code(s): I82.409 - Acute embolism and thrombosis of unspecified deep veins of unspecified lower extremity Status: Acute Assessment and Plan: -See above (3) Essential (primary) hypertension: Code(s): I10 - Essential (primary) hypertension Status: Acute Assessment and Plan: -Blood pressure reviewed and stable -Continue home medications as appropriate (4) Obstructive sleep apnea (adult) (pediatric): Code(s): G47.33 - Obstructive sleep apnea (adult) (pediatric) Status: Acute Assessment and Plan: -Home CPAP or AutoPAP while in hospital, bleed in oxygen to maintain saturation 92% or higher (5) Impaired fasting glucose: Code(s): R73.01 - Impaired fasting glucose Status: Acute Assessment and Plan: -Hemoglobin A1c added, result 7.2 -Add ACHS fingerstick glucose and SSI -Hold metformin while hospitalized (6) Anxiety disorder, unspecified: Code(s): F41.9 - Anxiety disorder, unspecified Status: Acute Assessment and Plan: -Continue home medications including hydroxyzine and aripiprazole Time Spent With Patient Time: Subjective Date/time seen: 12/28/24 07:55 Interval history: 64-year-old male patient with a past medical history of hypertension, obstructive sleep apnea, anxiety depression obesity was admitted to the hospital due to discovery of pulmonary embolus and left lower extremity DVT. 12/28/2024 Patient sitting comfortably in bed at time exam. Denies chest pain shortness of breath, nausea/vomiting, dizziness, abdominal pain, or lower extremity pain. Plan to switch heparin to Eliquis 10 mg starting tonight. Will continue Eliquis for 7 days and switch to 5 mg after that. Patient otherwise stable with unremarkable blood work in stable since. Will attempt to wean O2 supplementation. Echocardiogram ordered and pending at this time. Placed has no other concerns at this time. Review of Systems Review of Systems: All systems reviewed & are unremarkable except as noted in HPI and below Exam Narrative: GENERAL: Well-appearing, well-nourished, and in no acute distress. HEAD: Normocephalic, atraumatic. ENT: Mucous membranes moist. NECK: Supple. CHEST: Clear to auscultation. No respiratory distress. HEART: Regular rate and rhythm. Normal peripheral pulses. ABDOMEN: Soft, nontender, nondistended. EXTREMITIES: Normal range of motion. Mild left lower extremity tenderness and minimal swelling SKIN: Warm, dry, no rash. NEURO: Alert and oriented x3. PSYCH: Normal mood and affect. Objective Data Vital Signs Vital Signs: Vital Signs - 24 hr 12/27/24 16:13 12/27/24 20:08 12/27/24 21:54 Temperature 97.9 F 97.9 F Pulse Rate 77 73 Respiratory Rate 16 19 Blood Pressure 158/90 H 144/95 H Pulse Oximetry 95 94 92 Oxygen Delivery Room Air Nasal Cannula Oxygen Flow Rate 2 Fraction of Inspired Oxygen 12/27/24 21:55 12/27/24 22:00 12/27/24 22:15 Temperature 97.6 F Pulse Rate 76 71 72 Respiratory Rate 19 17 Blood Pressure 144/95 H 172/97 H Pulse Oximetry 94 92 Oxygen Delivery Oxygen Flow Rate Fraction of Inspired Oxygen 12/27/24 22:42 12/27/24 23:59 12/28/24 00:00 Temperature 98.0 F Pulse Rate 84 Respiratory Rate 16 Blood Pressure 150/88 H Pulse Oximetry 95 93 93 Oxygen Delivery Nasal Cannula Nasal Cannula Oxygen Flow Rate 2 2 Fraction of Inspired Oxygen 12/28/24 00:00 12/28/24 00:00 12/28/24 04:00 Temperature Pulse Rate 86 Respiratory Rate Blood Pressure Pulse Oximetry 93 93 Oxygen Delivery Nasal Cannula Nasal Cannula Oxygen Flow Rate 2 2 Fraction of Inspired Oxygen 28 12/28/24 04:00 12/28/24 04:00 Temperature 97.8 F Pulse Rate 73 70 Respiratory Rate 17 Blood Pressure 161/90 H Pulse Oximetry 94 Oxygen Delivery Oxygen Flow Rate Fraction of Inspired Oxygen Intake/Output Intake/Output: Intake & Output 12/25/24 12/26/24 12/27/24 12/28/24 23:59 23:59 23:59 23:59 Intake Total 95 Output Total 400 400 Balance -400 -305 Meds/Results Medications: Active Medications Generic Name Dose Route Start Last Admin Trade Name Freq PRN Reason Stop Dose Admin Acetaminophen 1,000 mg 12/28/24 00:32 Acetaminophen 500 Mg Tablet PO Q6H PRN pain 1-3 Hydrocodone Bitart/Acetaminophen 1 tab 12/27/24 20:40 Hydrocodone/Acetaminophen (*Crx) 5-325 Mg Tablet PO Q4H PRN Pain Rated 4-6 Aripiprazole 2 mg 12/28/24 21:00 Aripiprazole 2 Mg Tablet PO QHS BISMARK Atorvastatin Calcium 40 mg 12/28/24 21:00 Atorvastatin 40 Mg Tablet PO HS BISMARK Bupropion HCl 300 mg 12/28/24 09:00 Bupropion Hcl Xl (24 Hr) 150 Mg Tabcr PO QAM BISMARK Dextrose 12.5 gm 12/27/24 21:47 Dextrose 50% 25 Gm/50 Ml Syringe IV PUSH PRN PRN Hypoglycemia Protocol Fenofibrate 145 mg 12/28/24 09:00 Fenofibrate Nanocrystallized 145 Mg Tablet PO QAM BISMARK Glucagon 1 mg 12/27/24 21:47 Glucagon For Inj 1 Mg Vial IM PRN PRN Hypoglycemia Protocol Glucose 15 gm 12/27/24 21:47 Glucose Oral Gel 15 Gm Of Glucse In 37.5 Gm Tube PO PRN PRN Hypoglycemia Protocol Heparin Sodium (Porcine) 7,000 units 12/27/24 19:12 Heparin Sodium 5,000 Units/Ml Vial IV PUSH PRN PRN aPTT less than 55 seconds Heparin Sodium (Porcine) 3,500 units 12/27/24 19:12 12/28/24 02:23 Heparin Sodium 5,000 Units/Ml Vial IV PUSH 3,500 units PRN PRN Administration aPTT 55 - 70 seconds Hydroxyzine HCl 10 mg 12/28/24 00:32 Hydroxyzine Hcl 10 Mg Tablet PO TID PRN anxiety Heparin Sodium/Dextrose 25,000 units in 250 mls @ 17 mls/hr 12/27/24 19:15 12/28/24 02:24 Heparin Sodium/D5w 100 Units/Ml IV CONT 1,700 units/hr .[id number] BISMARK 17 mls/hr Titration Protocol 1,700 UNITS/HR Dextrose 1,000 mls @ 100 mls/hr 12/27/24 21:47 Dextrose 5% 1,000 Ml IVPB PRN PRN Hypoglycemia Protocol Insulin Aspart 3 - 6 units 12/28/24 08:00 Insulin Aspart (*Bkc) 100 Units/Ml SUB-Q TIDWM [facility] Protocol Latanoprost 1 drop 12/28/24 21:00 Latanoprost 0.005% Op Soln 2.5 Ml Btl EACH EYE [facility] Miscellaneous Information 1 each 12/28/24 00:01 12/28/24 02:00 Vilazodone 40 Mg Tablet) Is Nonformulary, Can Patient Bring From Home? XX 01/27/25 00:00 Not Given CLARIFY [facility] Non-Formulary Medication 40 mg 12/28/24 09:00 Vilazodone PO 01/27/25 08:59 DAILY [facility] Ondansetron HCl 4 mg 12/27/24 20:40 Ondansetron Inj 4 Mg/2 Ml Vial IV PUSH Q4H PRN Nausea Pantoprazole Sodium 40 mg 12/28/24 09:00 Pantoprazole 40 Mg Tablet PO QAM [facility] Perflutren Lipid Microsphere 0 ml 12/27/24 20:42 Perflutren Lipid Microspheres 1.5 Ml Vial Diluted To 10 Ml Total Volume IV PUSH 12/30/24 20:42 ONCE PRN adequate visualization Protocol Trazodone HCl 50 mg 12/28/24 00:35 12/28/24 02:01 Trazodone Hcl 50 Mg Tablet PO Not Given [facility] Radiology Results: ITS Impressions Chest CTA 12/27/24 18:49 IMPRESSION: Extensive bilateral pulmonary embolus within the lobar, segmental and subsegmental branches. Additional findings suggesting right heart strain, as detailed above. These findings were discussed with Bethany Raymond at 7pm on 12/27/2024 Venous Doppler Study 12/27/24 21:43 IMPRESSION: 1. No deep venous thrombosis within the right lower extremity, as detailed above. Labs Labs: Laboratory Results - last 24 hr 12/27/24 12/27/24 12/28/24 17:51 22:27 01:55 WBC 7.9 7.4 RBC 5.57 5.15 Hgb 15.3 14.2 Hct 47.9 44.4 MCV 86.0 86.2 MCH 27.5 27.6 MCHC 31.9 L 32.0 RDW 13.2 13.3 Plt Count 252 233 MPV 10.0 10.1 Immature Gran % (Auto) 0.5 0.5 Neut % (Auto) 59.8 55.0 Lymph % (Auto) 25.0 26.6 Bates % (Auto) 7.1 7.5 Eos % (Auto) 7.0 H 9.9 H Baso % (Auto) 0.6 0.5 Lymph # (Auto) 1.98 1.96 Bates # (Auto) 0.6 0.6 Eos # (Auto) 0.6 H 0.7 H Baso # (Auto) 0.1 0.0 Abs Immat Gran (auto) 0.04 H 0.04 H Absolute Neuts (auto) 4.7 4.0 Absolute Nucleated RBC 0.000 0.000 Nucleated RBC % 0.0 0.0 PT 15.1 H INR 1.1 APTT 28.1 66.0 H Sodium 143 141 Potassium 4.1 3.7 Chloride 109 H 108 H Carbon Dioxide 24 23 Anion Gap 10 10 BUN 21 H 21 H Creatinine 1.19 1.06 Estim Creat Clear Calc 72 80 Estimated GFR > 60 > 60 Glucose 110 207 H POC Capillary Glucose 121 H Hemoglobin A1c 7.2 H Calcium 9.8 9.2 Magnesium 1.8 2.0 Total Bilirubin 0.8 0.6 AST 36 34 ALT 33 31 Alkaline Phosphatase 58 56 Troponin I < 0.012 < 0.012 NT-Pro-B Natriuret Pep 28 < 20 Total Protein 8.0 7.0 Albumin 4.8 4.3 Triglycerides 220 H Cholesterol 162 LDL Cholesterol Direct 87 HDL Direct 44 Influenza A (RT-PCR) Negative Influenza B (RT-PCR) Negative RSV (RT-PCR) Negative SARS-CoV-2 RNA (RT-PCR) Negative 05/23/25 07:45 WBC RBC Hgb Hct MCV MCH MCHC RDW Plt Count MPV Immature Gran % (Auto) Neut % (Auto) Lymph % (Auto) Bates % (Auto) Eos % (Auto) Baso % (Auto) Lymph # (Auto) Bates # (Auto) Eos # (Auto) Baso # (Auto) Abs Immat Gran (auto) Absolute Neuts (auto) Absolute Nucleated RBC Nucleated RBC % PT INR APTT Sodium Potassium Chloride Carbon Dioxide Anion Gap BUN Creatinine Estim Creat Clear Calc Estimated GFR Glucose POC Capillary Glucose 155 H Hemoglobin A1c Calcium Magnesium Total Bilirubin AST ALT Alkaline Phosphatase Troponin I NT-Pro-B Natriuret Pep Total Protein Albumin Triglycerides Cholesterol LDL Cholesterol Direct HDL Direct Influenza A (RT-PCR) Influenza B (RT-PCR) RSV (RT-PCR) SARS-CoV-2 RNA (RT-PCR) Quality VTE Prophylaxis VTE prophylaxis: pharmacologic ordered (heparin drip, switched to Eliquis 10 mg b.i.d. starting p.m. 12/28)
[2024-12-28] MEDS: buPROPion HCL XL (24 HR) 150 MG TABCR 300 MG PO (08:40)
[2024-12-28] MEDS: FENOFIBRATE NANOCRYSTALLIZED 145 MG TABLET PO (08:40)
[2024-12-28] MEDS: PANTOPRAZOLE 40 MG TABLET PO (08:40)
[2024-12-28 09:20] LABS: Partial Thromboplastin Time 95.1 Seconds (22.3-36.8)
[2024-12-28 11:35] LABS: Glucose Point of Care 163 mg/dl (65-105)
[2024-12-28 15:40] LABS: Glucose Point of Care 161 mg/dl (65-105)
[2024-12-28 20:00] LABS: Glucose Point of Care 153 mg/dl (65-105)
[2024-12-28] MEDS: APIXABAN 5 MG TABLET 10 MG PO (20:29)
[2024-12-28] MEDS: LATANOPROST 0.005% OP SOLN 2.5 ML BTL 1 DROP EACH EYE (20:30)
[2024-12-28] MEDS: ATORVASTATIN 40 MG TABLET PO (20:30)
[2024-12-28] MEDS: traZODone HCL 50 MG TABLET PO (20:30)
[2024-12-28] MEDS: ARIPiprazole 2 MG TABLET PO (20:30)
[2024-12-29] VITALS (10 sets, daily range): BP systolic 136–148; BP diastolic 82–84; PULSE 65–85; RESP 17–20; TEMP 36.4–36.7; O2SAT 92–98
[2024-12-29 04:01] LABS: Basophils Percent Auto 0.4 % (0.2-1.2); Eosinophils Absolute Auto 0.6 K/mm3 (0-0.3); Eosinophils Percent Auto 8.9 % (0-4.4); Hemoglobin 14.2 g/dL (14.0-18.0); Immature Granulocyte Absolute 0.05 K/mm3 (0.00-0.031); Immature Granulocyte Percent A 0.7 % (0-0.5); Lymphocytes Absolute Auto 1.41 K/mm3 (0.9-3.2); Lymphocytes Percent Auto 20.1 % (18.3-44.2); Mean Corpuscular HGB Conc 32.3 g/dl (32-36); Mean Corpuscular Hemoglobin 27.8 pg (26-34); Mean Corpuscular Volume 86.1 fl (80-100); Mean Platelet Volume 10.2 fl (7.4-10.4); Monocytes Absolute Auto 0.5 K/mm3 (0.1-0.6); Monocytes Percent Auto 7.3 % (2.6-8.5); Neutrophils Absolute Auto 4.4 K/mm3 (1.3-6.7); Neutrophils Percent Auto 62.6 % (45.5-73.1); Platelet Count Result 225 k/mm3 (150-375); Red Blood Count 5.11 M/mm3 (4.6-6.20); Red Cell Distribution Width 13.2 % (11.5-14.5)
[2024-12-29 04:15] LABS: Alanine Aminotransferase 31 U/L (6-50); Albumin Level 4.2 g/dL (3.5-5.1); Alkaline Phosphatase 51 U/L (38-126); Anion Gap 9 mmol/L (4-12); Aspartate Amino Transferase 34 U/L (17-59); Bilirubin,Total 0.7 mg/dL (0.2-1.3); Blood Urea Nitrogen 15 mg/dL (9-20); Calcium 9.2 mg/dL (8.4-10.2); Carbon Dioxide 23 mmol/L (22-30); Chloride 105 mmol/L (98-107); Estimated CRCL calculation 74 ml/min; Estimated Glomerular Filt Rate > 60; Glucose 138 mg/dL (65-110); Magnesium 1.9 mg/dL (1.6-2.3); Potassium 3.8 mmol/L (3.4-5.0); Sodium 137 mmol/L (137-145)
[2024-12-29 07:37] LABS: Glucose Point of Care 143 mg/dl (65-105)
[2024-12-29] MEDS: APIXABAN 5 MG TABLET 10 MG PO (08:30)
[2024-12-29] MEDS: PANTOPRAZOLE 40 MG TABLET PO (08:31)
[2024-12-29] MEDS: FENOFIBRATE NANOCRYSTALLIZED 145 MG TABLET PO (08:31)
[2024-12-29] MEDS: buPROPion HCL XL (24 HR) 150 MG TABCR 300 MG PO (08:31)
--- NOTE | 2024-12-29 10:21 | P.DS_ITS ---
DS: Admitting Diagnosis Discharge Date 12/29/2024 Admitting Diagnosis Pulmonary embolism DVT of lower limb DS: Discharge Diagnosis Discharge Diagnosis (1) Pulmonary embolism on left: Code(s): I26.99 - Other pulmonary embolism without acute cor pulmonale Status: Acute (2) DVT of lower limb, acute: Qualifiers: Affected thrombotic vein of extremity: popliteal Laterality: left Qualified Code(s): I82.432 - Acute embolism and thrombosis of left popliteal vein Code(s): I82.409 - Acute embolism and thrombosis of unspecified deep veins of unspecified lower extremity Status: Acute (3) Essential (primary) hypertension: Code(s): I10 - Essential (primary) hypertension Status: Acute (4) Obstructive sleep apnea (adult) (pediatric): Code(s): G47.33 - Obstructive sleep apnea (adult) (pediatric) Status: Acute (5) Impaired fasting glucose: Code(s): R73.01 - Impaired fasting glucose Status: Acute (6) Anxiety disorder, unspecified: Code(s): F41.9 - Anxiety disorder, unspecified Status: Acute DS: Summary Hospital Course Reason for hospitalization: Dyspnea, Pulmonary embolism Hospital Course: This is a 64-year-old male patient with a past medical history of hypertension, obstructive sleep apnea, anxiety depression obesity was admitted to the hospital due to discovery of pulmonary embolus and left lower extremity DVT. Patient reports symptoms of left leg pain and dyspnea on exertion ongoing for the past 2-3 weeks. He denies history of prior blood clots but states his father had blood clots in his legs in the past. Patient states for the past few weeks he has had tachypnea and shortness of breath after mild exertion like walking acros s the room, climbing a couple steps or working in the yard. He noted decreased energy levels as well. Patient was at work today and his coworkers encouraged him to leave and go to ER for evaluation. Labs unremarkable with special attention to troponin and BNP. Patient afebrile. Oxygen applied at 2 LPM in ER due to desaturation to mid/upper 80s with minor exertion. Patient states history of pre-diabetes but hemoglobin A1c today is 7.2 indicating Type 2 diabetes. Will hold metformin and use SSI with fingerstick glucose checks. Diabetic diet ordered. Chest CTA showed extensive bilateral pulmonary embolus within the lobar, segmental, and subsegmental branches, with the additional findings suggesting right heart strain. Ultrasound venous Doppler of the left lower extremity showed deep vein thrombosis from the level of the left popliteal vein peripherally to the gastrocnemius vein, ultrasound of the right lower extremity showed no deep vein thrombosis. Echocardiogram showed normal left ventricular chamber dimension and systolic function, with an EF of 60-65%. Mild concentric increased left ventricular wall thickness, grade 1 diastolic dysfunction, trace MVR and mild TVR with trace pulmonic regurgitation, but no evidence of right heart strain. EKG shows normal sinus rhythm. Given significant CTA and ultrasound findings, patient was started on bolus of heparin than subsequently put on heparin drip. He was then transferred to Eliquis 10 mg starting on the PM of 12/28. Blood work done on 12/28-12/29 was unremarkable. He was initially placed on 1.5 L nasal cannula for O2 supplementation but this was weaned accordingly and on the morning of 12/29 patient did not have any shortness of breath when ambulating throughout his room. At no point during his hospitalization as he had shortness of breath, chest pain, or weakness/dizziness. Patient otherwise is stable for discharge at this time. He will be instructed to continue taking 10 mg of Eliquis b.i.d. for 7 days and then subsequently taking 5 mg Eliquis for least 3 months. He will be given a 1 month supply but instructed to follow-up with his PCP further management. Patient without complaints or concerns at this time. Plan for discharge home at this time. Status at Discharge Functional status at discharge: independent ambulation Overall status at discharge: patient is progressing back to baseline Time Spent with Patient Time attestation: Total time spent providing and/or coordinating discharge services: 40 Exam Narrative: GENERAL: Well-appearing, well-nourished, and in no acute distress. HEAD: Normocephalic, atraumatic. ENT: Mucous membranes moist. NECK: Supple. CHEST: Clear to auscultation. No respiratory distress. HEART: Regular rate and rhythm. Normal peripheral pulses. ABDOMEN: Soft, nontender, nondistended. EXTREMITIES: Normal range of motion. Mild left lower extremity tenderness and minimal swelling SKIN: Warm, dry, no rash. NEURO: Alert and oriented x3. PSYCH: Normal mood and affect. DS: Data Data Completed and Pending Labs on day of discharge: Labs from last 24 hours 05/12/29/24 12/28/24 07:21 03:47 19:50 WBC 7.0 RBC 5.11 Hgb 14.2 Hct 44.0 MCV 86.1 MCH 27.8 MCHC 32.3 RDW 13.2 Plt Count 225 MPV 10.2 Immature Gran % (Auto) 0.7 H Neut % (Auto) 62.6 Lymph % (Auto) 20.1 Mcnairy % (Auto) 7.3 Eos % (Auto) 8.9 H Baso % (Auto) 0.4 Lymph # (Auto) 1.41 Mcnairy # (Auto) 0.5 Eos # (Auto) 0.6 H Baso # (Auto) 0.0 Abs Immat Gran (auto) 0.05 H Absolute Neuts (auto) 4.4 Absolute Nucleated RBC 0.000 Nucleated RBC % 0.0 Sodium 137 Potassium 3.8 Chloride 105 Carbon Dioxide 23 Anion Gap 9 BUN 15 D Creatinine 1.15 Estim Creat Clear Calc 74 Estimated GFR > 60 Glucose 138 H POC Capillary Glucose 143 H 153 H Calcium 9.2 Magnesium 1.9 Total Bilirubin 0.7 AST 34 ALT 31 Alkaline Phosphatase 51 Total Protein 7.0 Albumin 4.2 12/28/24 12/28/24 15:34 11:13 WBC RBC Hgb Hct MCV MCH MCHC RDW Plt Count MPV Immature Gran % (Auto) Neut % (Auto) Lymph % (Auto) Mcnairy % (Auto) Eos % (Auto) Baso % (Auto) Lymph # (Auto) Mcnairy # (Auto) Eos # (Auto) Baso # (Auto) Abs Immat Gran (auto) Absolute Neuts (auto) Absolute Nucleated RBC Nucleated RBC % Sodium Potassium Chloride Carbon Dioxide Anion Gap BUN Creatinine Estim Creat Clear Calc Estimated GFR Glucose POC Capillary Glucose 161 H 163 H Calcium Magnesium Total Bilirubin AST ALT Alkaline Phosphatase Total Protein Albumin Discharge Plan Discharge Attending physician on discharge: Emily Mathis Consulting providers: Raymon Novak Discharging Clinician: Raymon Novak Anticipated Discharge Date/Time: 12/29/24 10:06 Patient Disposition: Home Activity: as tolerated Diet: as tolerated Discharge Instructions: Take all medications as prescribed even if feeling better. I will be prescribing you Eliquis to be taken twice a day. You will continue taking 10mg (two tablets) until Tuesday (01/04) morning. Then that evening, Thursday 01/04 pm, you will start taking 5mg (one tablet). Eat well balanced meals and stay hydrated Follow-up with your primary care physician within 1 week. Follow up with Hematology in 1-2 weeks. I will be giving you a referral to followup on some of the blood work you had done during your hospitalization. Change positions slowly taking a break in between each position change If you should experience any chest pain, shortness of breath, temps >100.4 or any other worrisome symptoms please follow up with your PCP come back to the hospital It has been a pleasure taking care of you thank you for using our services Patient Instructions: Antibiotic Form, Apixaban (By mouth), Pulmonary Embolism (GEN), Deep Vein Thrombosis (GEN) Patient Language: Luxembourgish Stand Alone Forms: General Discharge Information Follow-up/Referrals: Shaan Hall MD [Physician] - Christina Diaz APRN [Primary Care Provider] - Discharge Medications: New Eliquis 5 mg Tablet 10 mg PO Q12HR Qty: 12 0RF Eliquis 5 mg Tablet 5 mg PO Q12HR 30 Days Qty: 60 0RF Rx Instructions: Start taking 5mg twice daily starting Tuesday (01/04) pm. Continued hydroxyzine HCl 10 mg tablet 10 mg PO TID PRN (Reason: anxiety) Qty: 30 2RF omeprazole 20 mg capsule,delayed release(DR/EC) 20 mg PO DAILY Qty: 30 0RF travoprost 0.004 % drops 1 drop EACH EYE QPM acetaminophen [Acetaminophen Pain Relief] 500 mg tablet 1,000 mg PO Q6H PRN (Reason: pain) trazodone 50 mg tablet See Rx Instructions .ROUTE .COMPLEX Qty: 90 1RF Dose Instruction: TAKE 1 TABLET(50 MG) BY MOUTH EVERY NIGHT AT BEDTIME Rx Instructions: TAKE 1 TABLET(50 MG) BY MOUTH EVERY NIGHT AT BEDTIME bupropion HCl [Wellbutrin XL] 300 mg tablet extended release 24 hr 300 mg PO QAM Qty: 90 3RF vilazodone 40 mg tablet 40 mg PO DAILY Qty: 90 3RF Rx Instructions: must administer with a meal/food metformin 500 mg tablet extended release 24 hr See Rx Instructions .ROUTE .COMPLEX Qty: 360 1RF Dose Instruction: TAKE 2 TABLETS BY MOUTH EVERY MORNING AND EVERY EVENING Rx Instructions: TAKE 2 TABLETS BY MOUTH EVERY MORNING AND EVERY EVENING atorvastatin 40 mg tablet See Rx Instructions .ROUTE .COMPLEX Qty: 90 1RF Dose Instruction: TAKE 1 TABLET BY MOUTH EVERY NIGHT AT BEDTIME Rx Instructions: TAKE 1 TABLET BY MOUTH EVERY NIGHT AT BEDTIME aripiprazole 2 mg tablet 2 mg PO QHS Qty: 30 5RF fenofibrate 160 mg tablet See Rx Instructions .ROUTE .COMPLEX Qty: 90 2RF Dose Instruction: TAKE 1 TABLET BY MOUTH EVERY DAY Rx Instructions: TAKE 1 TABLET BY MOUTH EVERY DAY Date of admission: 12/28/24 08:04 Primary Care Provider: Christina Diaz Admitting Provider: Emily Mathis Attending physician on admission: Emily Mathis Condition: Stable Quality VTE Prophylaxis VTE prophylaxis: pharmacologic ordered (heparin drip, switched to Eliquis 10 mg b.i.d. starting p.m. 12/28)
[2024-12-30 20:53] LABS: Antithrombin III Activity 97 % normal (80-135)
[2024-12-30 21:18] LABS: Anti Cardio Antibody IgM <2.0 MPL-U/mL; Anti Cardiolipin Antibody IgA <2.0 APL-U/mL; Anti Cardiolipin Antibody IgG 3.2 GPL-U/mL
[2025-01-01 04:43] LABS: APC Ratio 4.9 ratio (>=2.1)
[2025-01-01 23:09] LABS: Lupus dRVVT Screen 29 sec (< OR = 45); PTT-LA Screen 122 sec (< OR = 40)
[2025-01-02 10:38] LABS: PS/PT AB IgG 13 U (< OR = 30); PS/PT AB IgM 12 U (< OR = 30)
[2025-01-04 19:33] LABS: Factor V (Leiden) Mutation NEGATIVE
== END 2024-12-29 10:50 | disposition home or self-care (01) | DRG 176 ==
LOC: ANHED 20:47 → ANHIMU 21:46
PROVIDERS: Nurse Practitioner; Physician Assistant; Admitting Provider Family Medicine; Emergency Provider Emergency Medicine; PCP Nurse Practitioner Family; Visit Provider Physician Assistant
DX: I26.99 Other pulmonary embolism without acute cor pulmonale (principal); I82.432 Acute embolism and thrombosis of left popliteal vein; I82.462 Acute embolism and thrombosis of left calf muscular vein; I26.94 Multiple subsegmental thrombotic pulmonary emboli without acute cor pulmonale; I10 Essential (primary) hypertension; E78.2 Mixed hyperlipidemia; R73.01 Impaired fasting glucose; G47.33 Obstructive sleep apnea (adult) (pediatric); F41.9 Anxiety disorder, unspecified; F32.9 Major depressive disorder, single episode, unspecified; Z20.822 Contact with and (suspected) exposure to COVID-19; Z98.1 Arthrodesis status; Z87.891 Personal history of nicotine dependence
CPT/HCPCS: 36415; 71275; 80053; 80061; 81240; 81241; 82948; 83036; 83090; 83735; 83880; 84484; 85025; 85300; 85303; 85306; 85307; 85610; 85613; 85730; 86146; 87637; 93005; 93306; 93971; 96365; 96366; 96375; 99285; A9270; G0378; J1644; Q9967

== ENCOUNTER 2025-04-15 11:26 | Outpatient (CLI) | payer OTHER, SELFPAY ==
--- OUTSIDE RECORDS SUMMARY | 2004-06-18 04:15 | XMS_ITS | Continuity of Care Document ---
Author Organization [facility] Address [address] [place] [address] Phone Care Team Providers Care Operations Logistics Analyst Name Role Phone Pablo Ann DO Unavailable Unavailable Advance Directives Directive Yes / No Effective Date File Name No Information Encounters Encounter Description Practice Location Reason(s) For Visit Diagnoses Date Provider Providers Copied on Encounter [facility], [address], [place], [place], [id number], [place] tel:[phone] [facility] No Information Marissa Nance. [address] [place], [address], [place]. tel: [phone] Family History Family Member Type Diagnosis Age At Onset No Information Payers Payer name Insurance type Covered libertarian ID Authoriza tizakia(s) [facility] Commercial CI [id number] Social History Type Description Quantity Date Captured Comments Sex Male Smoking Status No Information Chief Complaint And Reason For Visit No Information Reason For Referral Reason For Referral No Information History Of Present Illness Encounter Date Complaint History Of Prese nt Illness No Information Functional Status Date Functional Assessmen t No Information Instructions Date Instruction Additional Infor mation No Information Assessments Type Assessment Date No Information Patient Care Teams Name Effective Dates (start - stop) Status Members No Information
--- OUTSIDE RECORDS SUMMARY | 2023-09-19 08:05 | XMS_ITS | Continuity of Care Document ---
Author Organization [facility] Address [address] [place] [address] Phone Care Team Providers Care Kettle Room Helper Name Role Phone Ronald Carreon DDS Unavailable Unavailable Medications Medication Instructions Dosage Effective Dates (start - stop) Status Comments Augmentin 500 mg-125 mg tablet take 1 tablet by oral route every 12 hours 1.00 tablet - No Longer Active Procedures Procedure Date Immunization Admin COVID19 Pfizer Dose 2 COVID19 Vaccine Pfizer Immunization Admin COVID19 Pfizer Dose 1 COVID19 Vaccine Pfizer Fluzone, Preservative Free, 4yrs And Old er (Adult) Advance Directives Directive Yes / No Effective Date File Name No Information Encounters Encounter Description Practice Location Reason(s) For Visit Diagnoses Date Provider Providers Copied on Encounter [facility], [address], [place], [place], [address] , tel: [phone] [place] [place] No Information 4 Velma Cardenas. [address], [place], [place], [address], [place]. tel:[phone] [facility], [address], [place], [place], [address] , tel:[phone] COVID Mobile Pfizer 2nd dose (chief complaint) Encounter for immunization Nurse Registered. [address], [place], [place], [address], . tel:[phone] Referring Provider: Judy Martínez, [address], [place], [address] . tel:[phone] sulting Provider: Jack Roberts, [address], [place], [address]. tel:[phone] [facility], [address], [place], [place], [address] , tel: [phone] COVID Mobile PFIZER 1ST DOSE (chief complaint) Encounter for immunization Nurse Registered. [address], [place], [place], [address], [place]. tel:[phone] Referring Provider: Judy Martínez, [address], [place], [address] . tel:[phone] sulting Provider: Jack Roberts, [address], [place], [address]. tel:[phone] [facility], [address], [place], [place], [address] , tel: [phone] [facility] No Information 9 Mauricio Kim. [address], [place], [place], [address], . tel:[phone] Referring Provider: Judy Martínez, [address], [place], [address] . tel:[phone] [facility], [address], [place], [place], [address] , tel: [phone] Historic Immunization Location No Information 1200 9 No Information [facility], [address], [place], [place], [address] , tel: [phone] Care Guidelines 1190 1 No Information Family History Family Member Type Diagnosis Age At Onset No Information Immunizations Vaccine Date Status Comments COVID-19 Pfizer administered Source: New Immunization Record COVID-19 Pfizer administered Source: New Immunization Record INFLUENZA VIRUS VACCINE SPLI T VIRUS 6-35 MO IM administered Source: New Immuniza tion Record INFLUENZA VACCINE administered Source: Ne w Immunization Record Payers Payer name Insurance type Covered alliance party ID Authoriza tion(s) No Information Social History Type Description Quantity Date Captured Comments Sex Male Smoking Status No Information Chief Complaint And Reason For Visit No Information Reason For Referral Reason For Referral No Information History Of Present Illness Encounter Date Complaint History Of Prese nt Illness Pfizer 2nd dose PFIZER 1ST DOSE Functional Status Date Functional Assessmen t No Information Instructions Date Instruction Additional Infor mation No Information Assessments Type Assessment Date No Information Patient Care Teams Name Effective Dates (start - stop) Status Members No Information
--- OUTSIDE RECORDS SUMMARY | 2025-04-15 10:30 | XMS_ITS | Encounter Summary ---
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 Name Role Phone Unavailable Primary Care Provider Unavailabl e Reason for Referral * CT Scan (Routine) - Open Specialty Diagnoses / Procedures Referred By Contac t Referred To Contact Diagnoses Occult malignancy (CMS/HCC) Procedures CT ABDOMEN PELVIS W CONTRAST Giesla Chaney MD [address] [place] [address] Phone: tel: fax: Referral ID Status Reason Start Date Expiration Date V isits Requested Visits Authorized [id number] Open CRS to Schedule 04/15/2025 05/16/2026 1 1 Encounter Details Date Type Department Care Team (Late st Contact Info) Description 04/15/2025 10:30 AM CDT Office Visit [facility] Oncology and Hematology - Crescencio [address] [place] [address] Gisela Chaney MD [address] [place] [address] Acute pulmonary embolism without acute cor pulmonale, unspecified pulmonary embolism type (CMS/HCC) (Primary Dx); 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 (CMS/HCC); Occult malignancy (CMS/HCC) Social History Tobacco Use Types Packs/Day Years Used Date Smoking Tobacco: Former Cigarettes 0.5 20 0 04/15/1985 - 04/15/2005 Smokeless Tobacco: Never Alcohol Use Standard Drinks/Week Comments Yes 0 (1 standard drink = 0.6 oz pur e alcohol) Occasionally Sex and Gender Information Value Date Recorded Sex Assigned at Not on file Legal Sex Male 10:31 AM CDT Gender Identity Not on file Sexual Orientation Not on file documented as of this encounter Last Filed Vital Signs Vital Sign Reading Time Taken Comments Blood Pressure 170/98 04/15/2025 10:20 AM CDT Pulse 72 04/15/2025 10:17 AM CDT Temperature 36.4 C (97.5 F) 04/15/2025 10:17 AM CDT Respiratory Rate 15 04/15/2025 10:1 7 AM CDT Oxygen Saturation 95% 04/15/2025 10: 17 AM CDT Inhaled Oxygen Concentration - - Weight 113.8 kg (250 lb 12.8 oz) 2024 10:17 AM CDT Height 180.3 cm (5' 11) 04/15/2025 10: 17 AM CDT Body Mass Index 34.98 04/15/2025 10:17 AM CDT documented in this encounter Plan of Treatment Upcoming Encounters Date Type Department Care Team (Late st Contact Info) Description 05/13/2025 4:30 PM CDT Telephone Check Up [facility] Oncology and Hematology - [place] [address] [place] [address] [facility] [address] [place] [address] Shaan Hall MD [address] [facility] [address] [place] [address] Scheduled Orders Name Type Priority Associated Diagnoses Orde r Schedule CBC WITH DIFFERENTIAL Lab Stat Acute pulmonary embolism without acute cor pulmonale, unspecified pulmonary embolism type (CMS/HCC) Expected: 04/15/2025, Expires: 04/15/2026 COMPREHENSIVE METABOLIC PANEL Lab Stat Acute pulmonary embolism without acute cor pulmonale, unspecified pulmonary embolism type (CMS/HCC) Expected: 04/15/2025, Expires: 04/15/2026 CT ABDOMEN PELVIS W CONTRAST Imaging Routine Occult malignancy (CMS/HCC) Expected: 04/15/2025, Expires: 04/15/2026 documented as of this encounter Visit Diagnoses Diagnosis Acute pulmonary embolism without acute cor pulmonale, unspecified pulmonary embolism type (CMS/HCC)- Primary 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
--- OUTSIDE RECORDS SUMMARY | 2025-04-15 11:48 | XMS_ITS | Clinical Summary ---
Author Organization [facility] Address [address] [place] [id number] Care Team Providers Care Operations Plant Attendant Name Role Phone Mike Early MD Primary Care Provider [phone] Allergies No known active allergies Medications atorvastatin [...] (10/14/2021): Added automatically from request for surgery [id number] Spinal stenosis, lumbar isaias on, with neurogenic claudication 10/14/2021 Overview (10/14/2021): Added automatically from request for surgery [id number] Immunizations Immunization Administration Dates Next Due Influenza, [...] on file 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 Gender Identity Not on file Sexual Orientation Not on file Obstetrics History Last Filed Vital Signs Vital Sign Reading Time Taken Comments Blood Pressure 158/94 08/19/2022 9:39 AM BURNISHING MACHINE OPERATOR Pulse 72 08/19/2022 9:39 AM BURNISHING MACHINE OPERATOR Temperature 36.8 C (98.3 F) 07/10/2022 9:09 AM BURNISHING MACHINE OPERATOR Respiratory Rate 16 07/10/2022 9:09 AM BURNISHING MACHINE OPERATOR Oxygen Saturation 97% 07/10/2022 9:09 AM BURNISHING MACHINE OPERATOR Inhaled Oxygen Concentration - - Weight 104.2 kg (229 lb 12.8 oz) 03/21/2023 8:34 AM CDT Height 185.4 cm (6' 1) 03/21/2023 8:34 AM CDT Body Mass Index [...] season) 2024 07/30/2021, 09/26/2020, 09/05/2020 Influenza Vaccine (#1) 2025 05/07/2020, 2017 DTaP/Tdap/Td Vaccine (2 - Td or Tdap) 12/15/2028 12/15/2018 Medical Devices Implanted Type Area Shipping Associate Device Identifier Shelf Expiration Date Model / Serial / Lot Bmp Infuse Sm [id number] - [id number] Implanted:Qty: 1 on 12/03/2021 by Gabriel Haddad MD at [facility] N/A: Spine Lumbar Medtronic Inc [id number] 04/08/2023 [id number] / / [id number] [address] [id number] Murphy Od7.5 Mm L50 Mm Polyaxial Spine Screw Bone - [id number] Implanted:Qty: 5 on 12/03/2021 by Gabriel Haddad MD at [facility] N/A: Spine Lumbar Aditi Spine [id number] / / Spineart [employer] Sjt-Ls 50 25-S Screw Spn Pedicle Sld 5x25mm - [id number] Implanted:Qty: 2 on 12/03/2021 by Gabriel Haddad MD at [facility] N/A: Spine Lumbar SPINEART [employer] INC 02/04/2029 SJT-LS 50 25-S / / [id number] Gel 10cc Demineralized Bone Matrix - [id number] Implanted:Qty: 1 on 12/03/2021 by Gabriel Haddad MD at [facility] N/A: Spine Lumbar Aditi Spine 02/16/2024 [id number] / / [id number] Allosource Crushed Fresh Frozen Cancellous 1-4mm Graft 15ml Bone [id number] - [id number] Implanted:Qty: 1 on 12/03/2021 by Gabriel Haddad MD at [facility] N/A: Spine Lumbar Allosource 12/18/2022 [id number] / / [id number] Spineart [employer] Inc Sca-Lm 15 14-S Cage Spn Med 15d Alif Scarlet 14mm - [id number] Implanted:Qty: 1 on 12/03/2021 by Gabriel Haddad MD at [facility] N/A: Spine Lumbar SPINEART USA INC 01/01/2029 SCA-LM 15 14-S / / [id number] Medtronic Inc Infuse 20ga 2x1in Vial Absorbable Syringe Needle Medium Graft 5.6 [id number] - [id number] Implanted:Qty: 1 on 12/03/2021 by Gabriel Haddad MD at [facility] N/A: Spine Lumbar Medtronic Inc [id number] 04/08/2023 [id number] / / [id number] Allosource Crushed Chip Frozen Graft 60ml Bone Cancellous [id number] - [id number] Implanted:Qty: 1 on 12/03/2021 by Gabriel Haddad MD at [facility] N/A: Spine Lumbar Allosource 03/25/2026 [id number] / / [id number] Aditi Spine Trio 6mm 70mm Union Thoracolumbar Eliezer Spinal [id number] - [id number] Implanted:Qty: 2 on 12/03/2021 by Gabriel Haddad MD at [facility] N/A: Spine Lumbar Aditi Spine [id number] / / [place] Spine Murphy Spine Screw Set Alegria 2901-61300 - [id number] Implanted:Qty: 6 on 12/03/2021 by Gabriel Haddad MD at [facility] N/A: Spine Lumbar Aditi Spine [id number] / / [place] Spine Murphy Od7.5 Mm L45 Mm Polyaxial Spine Screw Bone [id number] - [id number] Implanted:Qty: 1 on 12/03/2021 by Gabriel Haddad MD at [facility] N/A: Spine Lumbar [place] Spine [id number] / / Procedures Procedure Name Priority Date/Time Associated Diagnosis Comments EGFR Routine 12/08/2021 3:26 AM CDT LIPID PANEL STAT 12/03/2021 6:05 PM CDT POCT HEMOGLOBIN A1C Routine 11/09/2021 1 :52 PM CDT from Last 3 Months or Most Recently Relevant to Health Maintenance Results * (ABNORMAL) eGFR (12/08/2021 3:26 AM CDT) eGFR 73(L) 90 - 130 mL/min/1. 73 m2 [facility] Comment: Interpretive Data Reference Interval [...] 12/08/2021 3:38 AM CDT us Tiago Pack DELIVERY SPECIALIST LAB BLOOD ORDERABLES Final Re sult [facility] Department [place] [address] * (ABNORMAL) Lipid panel (12/03/2021 6:05 PM CDT) Cholesterol 156 30 - 199 mg/dL [facility] Comment: Interpretive Data Ages < or [...] on 2018. Triglycerides 419(H) <=149 mg/dL [facility] Comment: Interpretive Data Ages < or [...] on 2018. HDL 25(L) >=40 mg/dL [facility] Comment: Interpretive Data Ages < or [...] on 2018. LDL, calculated See Comment <=129 [facility] Comment: Unable to calculate LDL due to [...] on 2018. Non-HDL Cholesterol 131 mg/dL [facility] Comment: Interpretive Data Ages < or [...] last revised on 2018. Chol/HDL ratio 6 [facility] Blood 12/03/2021 6:05 PM CDT 12/03/2021 6:26 PM CDT us Gabriel Haddad MD LAB BLOOD ORDERABLES Final Result [facility] [place] [address] * (ABNORMAL) POCT hemoglobin A1c (11/09/2021 1:52 PM CDT) Hgb A1C, POC 5.8(H) 4.0 - 5.6 % [facility] Est Average Gluc POC 120 mg/dL [facility] Comment: The ADA recommends reporting an estimated Average Glucose (eAG) with all Hemoglobin A1c results using the equation derived from a study of 507 normal and diabetic adults. Minority populations were underrepresented and children were not included. (Diabetes Care 31:8820-3195, 2008). The eAG is not equivalent to a fasting glucose. Blood 11/09/2021 1:52 PM CDT 11/09/2021 1:52 PM CDT Gabriel Haddad MD POINT OF CARE TEST O RDERABLES Final Result [facility] Department [place] [address] from Last 3 Months or Most Recently Relevant to Health Maintenance Insurance [facility] Advance Directives For more information, please contact: [phone] * Full Code (Latest Code Status on File) Date Activated Date Inactivated Comments 12/03/2021 8:47 PM 12/08/2021 7:50 PM Care Teams Operations Plant Attendant Relationship Specialty Start Date End Date Mike Early MD PCP - General Family Medicine 06/08/22
--- OUTSIDE RECORDS SUMMARY | 2025-04-15 11:48 | XMS_ITS | Clinical Summary ---
Author Organization [facility] Citlali Becker Address [address] [place] [address] Care Team Providers Care Hydrogen Plant Operations Manager Name Role Phone Unavailable Primary Care Provider Unavailabl e Allergies No known active allergies Medications Eliquis 5 mg tablet Take 5 mg by mouth 2 times daily. 04/09/2025 Active ARIPiprazole (ABILIFY) 2 mg tablet Take 2 mg by mouth daily. 04/12/2025 Active atorvastatin (LIPITOR) 40 mg tablet Take 40 mg by mouth daily at bedtime. 03/28/2025 Active buPROPion HCL (WELLBUTRIN XL) 300 mg Extended Release 24 hour tablet Take 300 mg by mouth daily in the morning. 03/06/2025 Active fenofibrate (LOFIBRA) 160 mg Tablet Take 1 Tablet by mouth daily. 03/17/2025 Active latanoprost (XALATAN) 0.005 % solution instill 1 drop into both eyes every night at bedtime 02/11/2025 Active lisinopriL (PRINIVIL) 10 mg tablet Take 1 Tablet by mouth daily. 03/16/2025 Active metFORMIN (GLUCOPHAGE XR) 500 mg Extended Release 24 hour tablet Take 500 mg by mouth. 03/31/2025 Active vilazodone (VIIBRYD) 40 mg Tablet Take 1 Tablet by mouth daily. 03/29/2025 Active hydrOXYzine HCL (ATARAX) 10 mg tablet Take 10 mg by mouth 3 times daily as needed for Itching. 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 04/15/2025 Occult malignancy 04/15/2025 Encounters Date Type Department Care Team Description 04/15/2025 10:30 AM CDT Office Visit [facility] [address] [place] [address] Gisela Chaney MD Acute pulmonary embolism without acute cor pulmonale, unspecified pulmonary embolism type (CMS/HCC) (Primary Dx); 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 (CMS/HCC); Occult malignancy (CMS/HCC) from Last 3 Months Family History Medical History Relation Name Comments Heart Disease Father Prostate Cancer Father No Known Problems Mother Relation Name Status Comments Father Alive Mother Alive Social History Tobacco Use Types Packs/Day Years [...] Mass Index 34.98 04/15/2025 10:17 AM CDT Plan of Treatment Upcoming Encounters Date Type Department Care Team (Late st Contact Info) Description 05/13/2025 4:30 PM CDT Telephone Check Up [facility] [address] [place] [address] Shaan Hall MD [address] [facility] [address] [place] [id number] Health Maintenance Due Date Last Done Comments DIABETES ANNUAL FOOT EXAM 1980 DIABETES ANNUAL RETINAL EXAM 1980 DIABETES MICROALBUMIN ANNUAL SCREEN 1980 LDL CHOLESTEROL ANNUAL 1980 COLORECTAL SCREENING 2007 Colorectal Cancer Screening 2007 FIT-DNA Q 3 years 2007 FIT/FOBT Q 1 year 2007 Flex Sig/CT Colonography Q 5 years 2007 DIABETES HBA1C Q 6 MONTHS 05/11/2022 11/09/2021 Preventative Visit- Commercial 08/08/2024 INFLUENZA VACCINE (#1) 2025 , 05/05/2021, 05/07/2020, Additional history exists COVID-19 Vaccine (2024-2 6 season) 2025 07/21/2022, 07/30/2021, 09/26/2020, Additional history exists DTAP/TDAP/TD VACCINES (3 - T d or Tdap) 12/15/2028 12/15/2018, 08/05/2008, 03/22/1997 RSV VACCINE (60+ or ) (1 - 1-dose 75+ series) 2037 ZOSTER VACCINE Completed 04/10/2024, 01/25/2024 Insurance [employer] SIGNATURE [facility]MIN [facility]
[2025-04-15 11:56] LABS: Hematocrit 46.4 % (42.0-52.0); Hemoglobin 15.1 g/dL (14.0-18.0); Immature Granulocyte Percent A 0.8 % (0-0.5); Lymphocytes Absolute Auto 1.81 K/mm3 (0.9-3.2); Mean Corpuscular HGB Conc 32.5 g/dl (32-36); Mean Corpuscular Hemoglobin 28.1 pg (26-34); Mean Corpuscular Volume 86.4 fl (80-100); Nucleated Red Blood Cells Absolute Auto 0.000 K/mm3 (0.0-0.012); Nucleated Red Blood Cells Perc 0.0 % (0.0-0.2); Platelet Count Result 253 k/mm3 (150-375); Red Blood Count 5.37 M/mm3 (4.6-6.20); White Blood Count 6.2 K/mm3 (4.5-10.0)
[2025-04-15 13:40] LABS: Alanine Aminotransferase 41 U/L (6-50); Albumin Level 4.5 g/dL (3.5-5.1); Alkaline Phosphatase 70 U/L (38-126); Anion Gap 9 mmol/L (4-12); Aspartate Amino Transferase 37 U/L (17-59); Bilirubin,Total 0.5 mg/dL (0.2-1.3); Blood Urea Nitrogen 16 mg/dL (9-20); Calcium 9.7 mg/dL (8.4-10.2); Carbon Dioxide 25 mmol/L (22-30); Chloride 107 mmol/L (98-107); Estimated Glomerular Filt Rate > 60; Glucose 181 mg/dL (65-110); Potassium 4.6 mmol/L (3.4-5.0); Sodium 141 mmol/L (137-145); Total Protein 7.0 g/dL (6.3-8.2)
== END 2025-04-15 11:27 | disposition home or self-care (01) ==
PROVIDERS: Visit Provider Internal Medicine
DX: I26.99 Other pulmonary embolism without acute cor pulmonale (principal)
CPT/HCPCS: 36415; 80053; 85025